=== PATIENT | female | born 1965 | race Caucasian/White ===

== ENCOUNTER → 2016-04-07 | Outpatient (CLI) | payer OTHER ==
--- NOTE | 2016-04-07 11:55 | ECHOS ---
DATE OF SERVICE: 04/07/2016 AGE: 50Y SEX: F HT: 65" WT:190 lbs. Protocol Alex: Others: Stage: Dur. of Exercise: 8 minutes 30 seconds *Heart Rate Blood Pressure *Rest: 78 Rest: 100/64 * *Max. Achieved: 151 Maximum BP: 164/99 85% PMHR:143 100% PMHR: 168 *METS: 10.1 INDICATIONS: Chest pain. MEDICATIONS: See list. Patient was exercised for a total period of 8 minutes and 30 seconds. Peak heart rate of 151 was achieved. Maximum blood pressure of 164/99 millimeters of mercury was noted. Resting EKG shows normal sinus rhythm with normal DC interval and QRS duration and normal ST-T waves. No ST segment depression suggestive of ischemia is noted. The baseline echocardiographic images reveals normal left ventricular chamber size with normal left ventricular systolic function. In the immediate postexercise period, normal increase in the wall thickness and contractility is noted. FINAL IMPRESSION: This stress echocardiographic study is negative for stress-induced ischemia. EKG portion of the stress test is not suggestive of ischemia. Patient's exercise tolerance is normal.
== END | disposition home or self-care (01) ==
LOC: RADNMMAIN 09:38
PROVIDERS: ATTEND Internal Medicine
DX: R07.89 Other chest pain (principal)
CPT/HCPCS: 93017; 93350

== ENCOUNTER → 2016-04-10 | Outpatient (CLI) | payer OTHER ==
--- NOTE | 2016-04-10 11:16 | BD ---
EXAMINATION TYPE: MG DEXA axial skeleton. DATE OF EXAM: 04/10/2016 7:27 AM COMPARISON: 2011 CLINICAL HISTORY: osteoporosis Height: 5'5 Weight: 194 FRAX RISK QUESTIONS: Alcohol (3 or more units per day): no Family History (Parent hip fracture): no Glucocorticoids (More than 3mos): no (Ex: prednisone, prednisolone, methylprednisolone, dexamethasone, and hydrocortisone). History of Fracture in Adulthood: no Secondary Osteoporosis: 1. Type 1 Diabetes: no 2. Hyperthyroidism: no 3. Menopause before 45: yes 4. Malnutrition: no 5. Chronic liver disease: no Rheumatoid Arthritis: no Current Tobacco Use: no RISK FACTORS HISTORY OF: History of Wrist Fracture: rt When: child Family History of Osteoporosis: Active: Postmenopausal woman: MEDICATIONS: Additional Medications: ritalin, vitamin D , Miralax Additional History: osteoporosis EXAM MEASUREMENTS: Bone mineral densitometry was performed using the [employer] System. Bone mineral density as measured about the Lumbar spine is: ----- L1-L4(G/cm2): 1.284 T Score Values are as follows: ----- L2: 0.0 ----- L3: 1.4 ----- L4: 1.2 ----- L1-L4: 0.9 Bone mineral density has: Decreased -2.6% since study of: 06/16/2011 Bone mineral density about the R hip (g/cm2): 1.171 Bone mineral density about the L hip (g/cm2): 1.072 T Score values are as follows: -----R Neck: 1.0 -----L Neck: 0.2 -----R Intertrochanter: 1.0 -----L Intertrochanter: 1.6 Bone mineral density has: Increased 1.8% since study of:06/16/2011 IMPRESSION: Normal (Values between +1 and -1 indicate normal bone mass) NOTE: T-SCORE=SD OF THE YOUNG ADULT MEAN.
--- NOTE | 2016-04-11 09:07 | MM ---
Reason for exam: screening (asymptomatic). Last mammogram was performed 1 year and 1 month ago. History: Patient is postmenopausal. Family history of breast cancer in mother at age 71. Took hormonal contraceptives for 1 year beginning at age 13. Took estrogen for 1 year 2 months beginning at age 41. Physical Findings: A clinical breast exam by your physician is recommended on an annual basis and results should be correlated with mammographic findings. MG Screening Mammo w CAD Bilateral CC and MLO view(s) were taken. Prior study comparison: March 08, 2015, bilateral MG 3d diag mammo w/cad [facility]. May 13, 2013, bilateral digital screening mammo w/CAD. There are scattered fibroglandular densities. There is no discrete abnormality. No significant changes when compared with prior studies. ASSESSMENT: Negative, BI-RAD 1 RECOMMENDATION: Routine screening mammogram of both breasts in 1 year.
== END | disposition home or self-care (01) ==
LOC: RADMAMWWP 06:55
PROVIDERS: ATTEND Obstetrics & Gynecology
DX: Z12.31 Encounter for screening mammogram for malignant neoplasm of breast (principal); Z78.0 Asymptomatic menopausal state
CPT/HCPCS: 77080; G0202

== ENCOUNTER → 2016-08-27 | Outpatient (CLI) | payer OTHER ==
[2016-08-27 09:48] LABS: ALT 45 U/L (9-52); AST 30 U/L (14-36); Alkaline Phosphatase 67 U/L (38-126); Anion Gap 10 mmol/L; Blood Urea Nitrogen 14 mg/dL (7-17); Calcium 9.8 mg/dL (8.4-10.2); Carbon Dioxide 29 mmol/L (22-30); Chloride 104 mmol/L (98-107); Cholesterol 264 mg/dL (<200); Glucose 92 mg/dL (74-99); HDL Cholesterol 55 mg/dL (40-60); Non-African American GFR(MDRD) >60 (>60 ml/min/1.73 sqM); Potassium 4.1 mmol/L (3.5-5.1); Sodium 143 mmol/L (137-145); Total Bilirubin 0.6 mg/dL (0.2-1.3); Total Protein 7.6 g/dL (6.3-8.2); Triglycerides 143 mg/dL (<150)
== END | disposition home or self-care (01) ==
LOC: LABWHC1 09:02
PROVIDERS: ATTEND Internal Medicine
DX: E78.5 Hyperlipidemia, unspecified (principal)
CPT/HCPCS: 36415; 80053; 80061

== ENCOUNTER → 2016-11-21 | Outpatient (CLI) | payer OTHER ==
--- NOTE | 2016-11-21 15:04 | USB ---
Reason for exam: clinical finding. History: Patient is postmenopausal. Family history of breast cancer in mother at age 71. Took hormonal contraceptives for 1 year beginning at age 13. Took estrogen for 1 year 2 months beginning at age 41. Physical Findings: Nurse Summary: Patient complains of pulling/sharp/shooting pains in the left breast x 6 weeks (nurse avila) US Breast LT Technologist: Catherine Mcclain Left breast ultrasound includes all four quadrants, the retroareolar region and axilla. Finding demonstrates no cystic or solid lesion seen. No sonographic abnormality. No cystic or solid masses. These results were verbally communicated with the patient and result sheet given to the patient on 11/21/16. ASSESSMENT: Negative, BI-RAD 1 RECOMMENDATION: Return to routine screening mammogram schedule for both breasts. Back on schedule for April 2017. Manage patient on a clinical basis.
== END | disposition home or self-care (01) ==
LOC: RADUSWWP 13:32
PROVIDERS: ATTEND Obstetrics & Gynecology
DX: N64.4 Mastodynia (principal)

== ENCOUNTER → 2017-01-07 | Outpatient (CLI) | payer OTHER ==
--- NOTE | 2017-01-08 01:01 | US ---
EXAMINATION TYPE: US carotid duplex BILAT DATE OF EXAM: 01/07/2017 COMPARISON: NONE CLINICAL HISTORY: 51-year-old female G45.3 AMAUROSIS FUGAX. TECHNIQUE: Carotid duplex ultrasound examination. Indirect Doppler criteria was utilized. FINDINGS: Garber scale images show minimal atherosclerotic irregularity at the bifurcations. EXAM MEASUREMENTS: RIGHT: Peak Systolic Velocity (PSV) cm/sec ----- Right CCA: 109.5 ----- Right ICA: 79.8 ----- Right ECA: 99.1 ICA/CCA ratio: 0.7 RIGHT: End Diastole cm/sec ----- Right CCA: 33.6 ----- Right ICA: 20.4 ----- Right ECA: 21.5 LEFT: Peak Systolic Velocity (PSV) cm/sec ----- Left CCA: 91.9 ----- Left ICA: 111.7 ----- Left ECA: 71.2 ICA/CCA ratio: 1.2 LEFT: End Diastole cm/sec ----- Left CCA: 29.2 ----- Left ICA: 25.9 ----- Left ECA: 11.0 VERTEBRALS (direction of flow): Right Vertebral: Antegrade Left Vertebral: Antegrade Rhythm: Normal No significant stenosis seen, no elevated velocities. IMPRESSION: No hemodynamically significant stenosis appreciated in either internal carotid artery. Criteria for Assigning % of Stenosis / Diameter reduction (Estimation based on the indirect measurements of the internal carotid artery velocities (ICA PSV). 1. Normal (no stenosis)=ICA PSV < 125 cm/s: ratio < 2.0: ICA EDV<40 cm/s. 2. Less than 50% stenosis=ICA PSV < 125 cm/s: ratio < 2.0: ICA EDV<40 cm/s. 3. 50 to 69% stenosis=ICA PSV of 125 to 230 cm/s: ration 2.0 ? 4.0: ICA EDV 40-100 cm/s. 4. Greater than 70% stenosis to near occlusion= ICA PSV > 230 cm/s: ratio > 4.0: ICA EDV > 100 cm/s. 5. Near occlusion= ICA PSV velocities may be low or undetectable: variable ratio and ICA EDV. 6. Total occlusion=unable to detect flow.
== END | disposition home or self-care (01) ==
LOC: RADUSWWP 16:08
PROVIDERS: ATTEND Internal Medicine
DX: G45.3 Amaurosis fugax (principal)
CPT/HCPCS: 93880

== ENCOUNTER → 2017-07-29 | Outpatient (CLI) | payer BC ==
[2017-07-29 13:51] LABS: ALT 39 U/L (9-52); AST 30 U/L (14-36); Cholesterol 244 mg/dL (<200); HDL Cholesterol 65 mg/dL (40-60); LDL Cholesterol,Calculated 138 mg/dL (0-99); Triglycerides 207 mg/dL (<150)
--- NOTE | 2017-07-30 14:05 | MM ---
Reason for exam: screening (asymptomatic). Last mammogram was performed 1 year and 4 months ago. History: Patient is postmenopausal. Family history of breast cancer in mother at age 71. Took hormonal contraceptives for 1 year beginning at age 13. Took estrogen for 1 year 2 months beginning at age 41. Physical Findings: A clinical breast exam by your physician is recommended on an annual basis and results should be correlated with mammographic findings. MG Screening Mammo w CAD Bilateral CC and MLO view(s) were taken. Prior study comparison: April 10, 2016, bilateral MG screening mammo w CAD. March 08, 2015, bilateral MG 3d diag mammo w/cad [facility]. No significant changes when compared with prior studies. ASSESSMENT: Benign, BI-RAD 2 RECOMMENDATION: Routine screening mammogram of both breasts in 1 year.
== END | disposition home or self-care (01) ==
LOC: RADMAMWWP 12:52
PROVIDERS: ATTEND Obstetrics & Gynecology
DX: Z12.31 Encounter for screening mammogram for malignant neoplasm of breast (principal); E78.5 Hyperlipidemia, unspecified
CPT/HCPCS: 77067; 80061; 84450; 84460

== ENCOUNTER → 2017-12-25 | Outpatient (CLI) | payer BC ==
--- NOTE | 2017-12-25 08:46 | US ---
EXAMINATION TYPE: US pelvic complete DATE OF EXAM: 12/25/2017 COMPARISON: CT abdomen and pelvis November 05, 2012 CLINICAL HISTORY: R14.0 Abdominal Bloating. Right flank pain, bloating, complete hysterectomy 10+ yea rs ago TECHNIQUE: Transabdominal (TA). Date of LMP: unknown EXAM MEASUREMENTS: Uterus: Surgically absent Endometrial Stripe: Surgically absent Right Ovary: Surgically absent Left Ovary: Surgically absent 1. Uterus: Surgically absent, vaginal cuff = 0.6cm 2. Endometrium: Surgically absent 3. Right Ovary: Surgically absent 4. Left Ovary: Surgically absent 5. Bilateral Adnexa: wnl IMPRESSION: No pelvic ascites. Post hysterectomy changes without suspicious residual mass.
--- NOTE | 2017-12-25 08:48 | US ---
EXAMINATION TYPE: US abdomen complete DATE OF EXAM: 12/25/2017 COMPARISON: CT abdomen pelvis November 05, 2012 CLINICAL HISTORY: R14.0 Abdominal Bloating. Right fl ank pain, bloating, cholecystectomy EXAM MEASUREMENTS: Liver Length: 20.2 cm Gallbladder Wall: Surgically absent CBD: 0.5 cm Spleen: 9.1 cm Right Kidney: 12.9 x 4.1 x 4.1 cm Left Kidney: 13.1 x 5.1 x 4.4 cm Pancreas: Tail obscured by overlying bowel gas Liver: Cystic areas noted, largest = 1.9 x 1.3 x 1.7cm Gallbladder: Surgically absent Evidence for sonographic Aguero's sign: no CBD: wnl Spleen: wnl Right Kidney: no evidence of hydronephrosis Left Kidney: cystic area lower pole = 1.7 x 1.3 x 1.7cm Upper IVC: wnl Abd Aorta: wnl The visualized liver is heterogeneously hyperechoic. No intrahepatic ductal dilatation is seen. Evalu ation for focal masses is suboptimal due to the heterogeneity. Technologist champion a 1.7 cm thin-denisse d cyst correlates with CT axial image 13. The intrahepatic portion of the IVC and visualized abdomina l aorta are within normal limits. Gallbladder noted surgically absent. Common bile duct is unremarka ble. The visualized portions of the pancreas are homogenous. The spleen is unremarkable. Kidneys a re symmetric and free of hydronephrosis. Technologist identifies new 1.7 cm simple appearing cyst low er pole level left kidney. IMPRESSION: No significant new finding seen to account for patient's symptoms.
== END | disposition home or self-care (01) ==
LOC: RADUSWWP 06:51
PROVIDERS: ATTEND Internal Medicine Gastroenterology
DX: R14.0 Abdominal distension (gaseous) (principal); Z90.710 Acquired absence of both cervix and uterus
CPT/HCPCS: 76700; 76856

== ENCOUNTER 2018-01-06 09:44 | Day surgery (SDC) | payer BC ==
[2018-01-04 15:34] VITALS: BMI 31.4
[~2018-01-06 09:44] MED LIST: LACTATED RINGERS 1,000 ML IV SCH
[2018-01-06 10:06] VITALS: RESP 16; TEMP 98
[2018-01-06] MEDS ORDERED: LIDOCAINE 1% 20 ML VIAL (10MG/ML) FOR IV START INTRADERMA ONE (10:13)
[2018-01-06] MEDS ORDERED: PROPOFOL 10 MG/ML 20 ML VIAL IV ONE (10:43)
[2018-01-06] MEDS ORDERED: LIDOCAINE 1% INJ 10MG/ML (20 ML MDV) ONE (10:43)
--- NOTE | 2018-01-06 11:03 | P.PCN ---
Date of Procedure: 01/06/18 Procedure(s) Performed: Brief history: Patient is a pleasant 52-year-old white female, scheduled for an elective upper endoscopy as well as colonoscopy as a part of evaluation of admitted quadrant abdominal pain for the last 1 month duration. She tried Prilosec 20 mg daily for several weeks with no help.. Abdominal pain is worse with eating associated with abdominal bloating. No history of peptic ulcer disease or recent NSAID use. She is also scheduled for a screening colonoscopy today. Procedure performed: Esophagogastroduodenoscopy with biopsy Colonoscopy Preoperative diagnosis: White upper quadrant abdominal pain Screening for colon cancer Anesthesia: MAC Procedure: After informed consent was obtained from the patient was brought into the endoscopy unit and IV sedation was administered by anesthesia under continuous monitoring. Initially upper endoscopy was done. The Olympus GF 160 video endoscope was inserted inserted into the mouth and esophagus intubated without any difficulty and was gradually advanced into the stomach and duodenum and carefully examined. The bulb and second part of the duodenum appeared normal. Biopsies were done from the duodenum to rule out celiac disease. The scope was then withdrawn into the stomach adequately insufflated with air and upon careful examination the antrum had mild gastritis and biopsies were done from this area. The body, cardia and fundus appeared normal. The scope was then withdrawn into the esophagus. The GE junction was located at 40 cm to the incisors. It appeared regular with no erythema erosions or ulcerations. There was a 3-4 mm polyp noted in the mid esophagus at 29 cm from the incisors which was biopsied. Rest of the esophagus appeared normal. Patient tolerated the procedure well. At this time the patient continued to remain sedation. Initial digital rectal examination was normal. Olympus CF 160 video colonoscope was then inserted into the rectum and gradually advanced to the cecum without any difficulty. Careful examination was performed as the scope was gradually being withdrawn. The prep was excellent. The cecum, ascending colon, transverse colon, descending colon, sigmoid colon and rectum appeared normal. Retroflexion was performed in the rectum and no lesions were noted. Patient tolerated the procedure well. Impression: 1. Upper endoscopy revealed 3 mm mid esophageal polyp and mild antral gastritis 2. Colonoscopy was essentially within normal limits with no evidence of colitis or colorectal neoplasia Recommendations: Findings of this examination were discussed with the patient as well as her family. She was advised to follow with the biopsy results. She'll be seen in office in 2 weeks. He can have a repeat screening colonoscopy in 10 years
[2018-01-06 11:34] VITALS: BP 147/73; PULSE 64
== END 2018-01-06 11:49 | disposition home or self-care (01) ==
LOC: ORWHC2ENDO 09:44
PROVIDERS: ATTEND Internal Medicine Gastroenterology
DX: Z12.11 Encounter for screening for malignant neoplasm of colon (principal); K29.80 Duodenitis without bleeding; K31.9 Disease of stomach and duodenum, unspecified; K29.70 Gastritis, unspecified, without bleeding; K21.0 Gastro-esophageal reflux disease with esophagitis; D13.0 Benign neoplasm of esophagus; E78.5 Hyperlipidemia, unspecified; K21.9 Gastro-esophageal reflux disease without esophagitis; K58.9 Irritable bowel syndrome, unspecified; Z88.3 Allergy status to other anti-infective agents; Z79.899 Other long term (current) drug therapy; Z88.5 Allergy status to narcotic agent
CPT/HCPCS: 88305; 43239; J2001; J2704; G0121; 45378

== ENCOUNTER → 2018-02-23 | Outpatient (CLI) | payer BC ==
[2018-02-23 14:38] LABS: Basophils % (A) 0 %; Eosinophils # (A) 0.1 k/uL (0-0.7); Eosinophils % (A) 1 %; HCT 40.6 % (34.0-46.0); Lymphocytes # (A) 2.1 k/uL (1.0-4.8); Lymphocytes % (A) 25 %; MCHC 34.5 g/dL (31.0-37.0); MCV 84.2 fL (80.0-100.0); Mean Platelet Volume 7.2; Monocytes # (A) 0.3 k/uL (0-1.0); Monocytes % (A) 4 %; Neutrophils # (A) 5.7 k/uL (1.3-7.7); Neutrophils % (A) 68 %; Platelet Count 262 k/uL (150-450); RBC 4.82 m/uL (3.80-5.40); RDW 12.8 % (11.5-15.5); WBC 8.4 k/uL (3.8-10.6)
[2018-02-23 15:20] LABS: ALT 41 U/L (9-52); AST 36 U/L (14-36); Alkaline Phosphatase 66 U/L (38-126); Anion Gap 13 mmol/L; Blood Urea Nitrogen 19 mg/dL (7-17); Calcium 10.2 mg/dL (8.4-10.2); Carbon Dioxide 25 mmol/L (22-30); Chloride 105 mmol/L (98-107); Cholesterol 281 mg/dL (<200); Glucose 86 mg/dL (74-99); HDL Cholesterol 62 mg/dL (40-60); LDL Cholesterol,Calculated 185 mg/dL (0-99); Potassium 3.9 mmol/L (3.5-5.1); Sodium 143 mmol/L (137-145); Total Bilirubin 0.8 mg/dL (0.2-1.3); Triglycerides 172 mg/dL (<150)
--- NOTE | 2018-02-23 15:23 | US ---
EXAMINATION TYPE: US thyroid st tissue head/neck DATE OF EXAM: 02/23/2018 COMPARISON: US 08/17/2014 CLINICAL HISTORY: M54.2 CERVICALGIA. GLAND SIZE: Right Lobe: 4.1 X 1.3 X 1.3 cm Overall Parenchyma: heterogenous Left Lobe: 4.2 x 0.9 x 1.4 cm Overall Parenchyma: heterogeneous Isthmus Thickness: 0.2 cm NODULES RIGHT: # of nodules measured on right: 0 LEFT: # of nodules measured on left: 0 ISTHMUS: # of nodules measured in the isthmus: 0 Bilateral neck scanned, no evidence of lymphadenopathy. There is heterogeneous slightly small size thyroid without discrete nodule on images saved. IMPRESSION: As above, no suspicious nodules or adenopathy.
--- NOTE | 2018-02-26 15:12 | MM ---
Reason for exam: clinical finding. Last mammogram was performed 7 months ago. History: Patient is postmenopausal. Family history of breast cancer in mother at age 71. Took hormonal contraceptives for 1 year beginning at age 13. Took estrogen for 1 year 2 months beginning at age 41. Indicated problem(s): pain in the right breast. Physical Findings: Nurse did not find any significant physical abnormalities on exam. MG Diagnostic Mammo RT w CAD CC and MLO view(s) were taken of the right breast. Prior study comparison: July 29, 2017, bilateral MG screening mammo w CAD. April 10, 2016, bilateral MG screening mammo w CAD. There are scattered fibroglandular densities. No discrete abnormality. These results were verbally communicated with the patient and result sheet given to the patient on 02/23/18. ASSESSMENT: Negative, BI-RAD 1 RECOMMENDATION: Return to routine screening mammogram schedule for both breasts.
--- NOTE | 2018-02-26 15:15 | USB ---
History: Patient is postmenopausal. Family history of breast cancer in mother at age 71. Took hormonal contraceptives for 1 year beginning at age 13. Took estrogen for 1 year 2 months beginning at age 41. US Breast RT Right complete breast ultrasound includes all four quadrants, the retroareolar region and axilla. Finding demonstrates no cystic or solid lesion seen. These results were verbally communicated with the patient and result sheet given to the patient on 02/23/18. ASSESSMENT: Negative, BI-RAD 1 RECOMMENDATION: Clinical management of the right breast. Manage the right breast pain on a clinical basis. Routine screening mammogram of both breasts in 6 months.
== END ==
LOC: RADMAMWWP 12:54
PROVIDERS: ATTEND Internal Medicine
DX: M54.2 Cervicalgia (principal); N64.4 Mastodynia; E78.5 Hyperlipidemia, unspecified; E55.9 Vitamin D deficiency, unspecified
CPT/HCPCS: 36415; 76536; 77065; 80053; 80061; 82306; 84443; 85025

== ENCOUNTER → 2019-09-07 | Outpatient (CLI) | payer SELFPAY ==
--- NOTE | 2019-09-07 12:13 | FL ---
EXAMINATION TYPE: FL barium swallow DATE OF EXAM: 09/07/2019 HISTORY: Cervical and substernal dysphasia more with solid foods. History of GERD on antacid medicati on. History of vocal cord polyps. COMPARISON: NONE TECHNIQUE: A double contrast esophagram is performed utilizing air and barium. FINDINGS: The esophagus shows mild dysmotility and normal emptying into the stomach. No evidence of hiatal her andrea or stricture noted. No significant gastroesophageal reflux was seen during real time performance of this study. IMPRESSION: No significant abnormality is seen to account for patient's symptoms.
== END | disposition home or self-care (01) ==
LOC: RADFLMAIN 10:44
PROVIDERS: ATTEND Otolaryngology
DX: R13.10 Dysphagia, unspecified (principal); Z88.5 Allergy status to narcotic agent; Z91.041 Radiographic dye allergy status
CPT/HCPCS: 74220

== ENCOUNTER 2020-05-03 10:01 | Emergency (ER) | payer OTHER ==
[2020-05-03 10:13] VITALS: RESP 18
--- NOTE | 2020-05-03 10:28 | ED ---
Abdominal Pain HPI - General Chief Complaint: Abdominal Pain Stated Complaint: Abd pain Time Seen by Provider: 05/03/20 10:14 Source: patient Mode of arrival: ambulatory Limitations: no limitations - History of Present Illness Initial Comments: 54-year-old female with history of dyslipidemia, GERD, IBS previous cholecystectomy presenting to the emergency department today for chief complaint of epigastric pain and bloating on and off for months to years. Patient states that she has had the sensation of bloating and indigestion for years and has been diagnosed with IBS-she states these symptoms for the past 3-4 months have been worsening. Patient states yesterday she went to get off the toilet and had a ball-like sensation in the epigastric region that seemed to "roll into her chest"--she states that the pain radiated to the back along the side b/l. Patient states that she had indigestion, hiccups and belching since. patient states that the pain is almost gone right now. She denies chest pressure, dyspnea, leg swelling, hemoptysis, hx of PE/DVT or known cancer. Patient states that the abdominal pain did increase at time with maximal inspiration as well as with palpation of the epigastric region. Patient denies jaw pain, arm pain, diap horesis. Patient states that her father did have hx of DE. Remaining ROS (-). Upon arrival patient appears nontoxic in no acute distress. CT and endoscopy scheduled for Thursday of next week. - Related Data Home Medications Medication Instructions Recorded Confirmed Cholecalciferol (Vitamin D3) 2,000 unit PO DAILY 01/04/18 05/03/20 [Vitamin D3] Methylphenidate HCl [Ritalin] 10 mg PO QID 01/04/18 05/03/20 Pantoprazole [Protonix] 40 mg PO DAILY 01/04/18 05/03/20 Allergies Allergy/AdvReac Type Severity Reaction Status Date / Time acetaminophen Allergy Vomiting Verified 05/03/20 11:27 [From Darvocet-N] bacitracin Allergy Swelling,it Verified 05/03/20 11:27 [From Neosporin adela ([id number])] blue dye Allergy sneezing,it Verified 05/03/20 11:27 adela neomycin Allergy Swelling,it Verified 05/03/20 11:27 [From Neosporin adela ([id number])] polymyxin B Allergy Swelling,it Verified 05/03/20 11:27 [From Neosporin adela ([id number])] propoxyphene Allergy Vomiting Verified 05/03/20 11:27 [From Darvocet-N] Review of Systems ROS Statement: Those systems with pertinent positive or pertinent negative responses have been documented in the HPI. ROS Other: All systems not noted in ROS Statement are negative. Past Medical History Past Medical History: Chest Pain / Angina, GERD/Reflux, Hyperlipidemia Additional Past Medical History / Comment(s): hiatal hernia, hx ulcer, IBS, constipation, rt side abdominal pain, abdominal swelling, History of Any Multi-Drug Resistant Organisms: None Reported Past Surgical History: Section, Cholecystectomy, Hysterectomy, Orthopedic Surgery Additional Past Surgical History / Comment(s): rt shoulder rotator cuff, Past Anesthesia/Blood Transfusion Reactions: Motion Sickness Past Psychological History: Anxiety, Depression Smoking Status: Never smoker Past Alcohol Use History: Occasional Past Drug Use History: None Reported - Past Family History Mother Family Medical History: Cancer Brother(s) Family Medical History: Deep Vein Thrombosis (DVT) General Exam - General Exam Comments Initial Comments: General: The patient is awake and alert, in no distress Eye: Pupils are equal, round and reactive to light, extra-ocular movements are intact. No nystagmus. There is normal conjunctiva bilaterally. No signs of icterus. Ears, nose, mouth and throat: There are moist mucous membranes and no oral lesions. Neck: The neck is supple, there is no tenderness or JVD. Cardiovascular: There is a regular rate and rhythm. No murmur, rub or gallop is appreciated. Respiratory: Lungs are clear to auscultation, respirations are non-labored, breath sounds are equal. No wheezes, stridor, rales, or rhonchi. Gastrointestinal: Soft, appears maybe slightly distended, mild tenderness to palpation of the epigastric region, abdomen without masses or organomegaly noted. There is no rebound or guarding present. Musculoskeletal: Normal ROM, no tenderness. Strength 5/5. Sensation intact. Radial pulses equal bilaterally 2+. Neurological: A&O x 3. CN II-XII intact grossly, There are no obvious motor or sensory deficits. Coordination appears grossly intact. Speech is normal. Skin: Skin is warm and dry and no rashes or lesions are noted. Psychiatric: Cooperative, appropriate mood & affect, normal judgment. Limitations: no limitations Course Vital Signs 05/03/20 05/03/20 10:06 13:24 Temperature 98.1 F 97.6 F Pulse Rate 77 68 Respiratory 18 18 Rate Blood Pressure 152/84 152/97 O2 Sat by Pulse 93 L 99 Oximetry Medical Decision Making - Medical Decision Making Ventricular rate 60 bpm, HI interval 136 small seconds, QRS ration any formal seconds, QT/QTC 416/460 ms. This is normal sinus without any ST elevation or depression. EKG within normal limits. Troponin negative. Patient is reproducible epigastric pain the symptoms been ongoing for months if not a year per patient. CT revealed no masses. Patient denies any chest pain. Patient symptoms currently controlled. At this afternoon discussed the case with attending provider including presenting history, EKG, and labs by attending and I are comfortable discharge with outpatient GI follow-up as scheduled and primary care follow up 1 today's return for worsening symptoms. - Lab Data Result diagrams: 05/03/20 10:37 05/03/20 10:37 Lab Results 05/03/20 05/03/20 05/03/20 Range/Units 10:37 10:37 10:37 WBC 7.8 (3.8-10.6) k/uL RBC 4.80 (3.80-5.40) m/uL Hgb 13.4 (11.4-16.0) gm/dL Hct 40.3 (34.0-46.0) % MCV 84.0 (80.0-100.0) fL MCH 28.0 (25.0-35.0) pg MCHC 33.3 (31.0-37.0) g/dL RDW 13.0 (11.5-15.5) % Plt Count 299 (150-450) k/uL MPV 7.0 Neutrophils % 62 % Lymphocytes % 30 % Monocytes % 5 % Eosinophils % 1 % Basophils % 1 % Neutrophils # 4.8 (1.3-7.7) k/uL Lymphocytes # 2.3 (1.0-4.8) k/uL Monocytes # 0.4 (0-1.0) k/uL Eosinophils # 0.1 (0-0.7) k/uL Basophils # 0.0 (0-0.2) k/uL PT 9.6 (9.0-12.0) sec INR 0.9 (<1.2) APTT 24.6 (22.0-30.0) sec Sodium (137-145) mmol/L Potassium (3.5-5.1) mmol/L Chloride (98-107) mmol/L Carbon Dioxide (22-30) mmol/L Anion Gap mmol/L BUN (7-17) mg/dL Creatinine (0.52-1.04) mg/dL Est GFR (CKD-EPI)AfAm (>60 ml/min/1.73 sqM) Est GFR (CKD-EPI)NonAf (>60 ml/min/1.73 sqM) Glucose (74-99) mg/dL Plasma Lactic Acid Vikas (0.7-2.0) mmol/L Calcium (8.4-10.2) mg/dL Total Bilirubin (0.2-1.3) mg/dL AST (14-36) U/L ALT (4-34) U/L Alkaline Phosphatase (38-126) U/L Troponin I (0.000-0.034) ng/mL NT-Pro-B Natriuret Pep pg/mL Total Protein (6.3-8.2) g/dL Albumin (3.5-5.0) g/dL Amylase (30-110) U/L Lipase (23-300) U/L Urine Color Light Yellow Urine Appearance Clear (Clear) Urine pH 5.5 (5.0-8.0) Ur Specific Ledger 1.018 (1.001-1.035) Urine Protein Negative (Negative) Urine Glucose (UA) Negative (Negative) Urine Ketones Negative (Negative) Urine Blood Negative (Negative) Urine Nitrite Negative (Negative) Urine Bilirubin Negative (Negative) Urine Urobilinogen <2.0 (<2.0) mg/dL Ur Leukocyte Esterase Trace H (Negative) Urine WBC 2 (0-5) /hpf Ur Squamous Epith Cells 2 (0-4) /hpf Urine Mucus Rare H (None) /hpf 05/03/20 05/03/20 05/03/20 Range/Units 10:37 10:37 10:37 WBC (3.8-10.6) k/uL RBC (3.80-5.40) m/uL Hgb (11.4-16.0) gm/dL Hct (34.0-46.0) % MCV (80.0-100.0) fL MCH (25.0-35.0) pg MCHC (31.0-37.0) g/dL RDW (11.5-15.5) % Plt Count (150-450) k/uL MPV Neutrophils % % Lymphocytes % % Monocytes % % Eosinophils % % Basophils % % Neutrophils # (1.3-7.7) k/uL Lymphocytes # (1.0-4.8) k/uL Monocytes # (0-1.0) k/uL Eosinophils # (0-0.7) k/uL Basophils # (0-0.2) k/uL PT (9.0-12.0) sec INR (<1.2) APTT (22.0-30.0) sec Sodium 139 (137-145) mmol/L Potassium 4.5 (3.5-5.1) mmol/L Chloride 103 (98-107) mmol/L Carbon Dioxide 22 (22-30) mmol/L Anion Gap 14 mmol/L BUN 18 H (7-17) mg/dL Creatinine 0.64 (0.52-1.04) mg/dL Est GFR (CKD-EPI)AfAm >90 (>60 ml/min/1.73 sqM) Est GFR (CKD-EPI)NonAf >90 (>60 ml/min/1.73 sqM) Glucose 101 H (74-99) mg/dL Plasma Lactic Acid Vikas 1.4 (0.7-2.0) mmol/L Calcium 10.9 H (8.4-10.2) mg/dL Total Bilirubin 0.5 (0.2-1.3) mg/dL AST 38 H (14-36) U/L ALT 41 H (4-34) U/L Alkaline Phosphatase 64 (38-126) U/L Troponin I (0.000-0.034) ng/mL NT-Pro-B Natriuret Pep 15 pg/mL Total Protein 8.3 H (6.3-8.2) g/dL Albumin 5.1 H (3.5-5.0) g/dL Amylase 50 (30-110) U/L Lipase 178 (23-300) U/L Urine Color Urine Appearance (Clear) Urine pH (5.0-8.0) Ur Specific Ledger (1.001-1.035) Urine Protein (Negative) Urine Glucose (UA) (Negative) Urine Ketones (Negative) Urine Blood (Negative) Urine Nitrite (Negative) Urine Bilirubin (Negative) Urine Urobilinogen (<2.0) mg/dL Ur Leukocyte Esterase (Negative) Urine WBC (0-5) /hpf Ur Squamous Epith Cells (0-4) /hpf Urine Mucus (None) /hpf 05/03/20 Range/Units 11:25 WBC (3.8-10.6) k/uL RBC (3.80-5.40) m/uL Hgb (11.4-16.0) gm/dL Hct (34.0-46.0) % MCV (80.0-100.0) fL MCH (25.0-35.0) pg MCHC (31.0-37.0) g/dL RDW (11.5-15.5) % Plt Count (150-450) k/uL MPV Neutrophils % % Lymphocytes % % Monocytes % % Eosinophils % % Basophils % % Neutrophils # (1.3-7.7) k/uL Lymphocytes # (1.0-4.8) k/uL Monocytes # (0-1.0) k/uL Eosinophils # (0-0.7) k/uL Basophils # (0-0.2) k/uL PT (9.0-12.0) sec INR (<1.2) APTT (22.0-30.0) sec Sodium (137-145) mmol/L Potassium (3.5-5.1) mmol/L Chloride (98-107) mmol/L Carbon Dioxide (22-30) mmol/L Anion Gap mmol/L BUN (7-17) mg/dL Creatinine (0.52-1.04) mg/dL Est GFR (CKD-EPI)AfAm (>60 ml/min/1.73 sqM) Est GFR (CKD-EPI)NonAf (>60 ml/min/1.73 sqM) Glucose (74-99) mg/dL Plasma Lactic Acid Vikas (0.7-2.0) mmol/L Calcium (8.4-10.2) mg/dL Total Bilirubin (0.2-1.3) mg/dL AST (14-36) U/L ALT (4-34) U/L Alkaline Phosphatase (38-126) U/L Troponin I <0.012 (0.000-0.034) ng/mL NT-Pro-B Natriuret Pep pg/mL Total Protein (6.3-8.2) g/dL Albumin (3.5-5.0) g/dL Amylase (30-110) U/L Lipase (23-300) U/L Urine Color Urine Appearance (Clear) Urine pH (5.0-8.0) Ur Specific Ledger (1.001-1.035) Urine Protein (Negative) Urine Glucose (UA) (Negative) Urine Ketones (Negative) Urine Blood (Negative) Urine Nitrite (Negative) Urine Bilirubin (Negative) Urine Urobilinogen (<2.0) mg/dL Ur Leukocyte Esterase (Negative) Urine WBC (0-5) /hpf Ur Squamous Epith Cells (0-4) /hpf Urine Mucus (None) /hpf Disposition Clinical Impression: Abdominal pain, Bloating Disposition: HOME SELF-CARE Condition: Good Instructions (If sedation given, give patient instructions): Acute Abdominal Pain (ED) Additional Instructions: Please use medication as discussed. Please follow-up with family doctor in the next 2 days. Please return to emergency room if the symptoms increase or worsen or for any other concerns. Is patient prescribed a controlled substance at d/c from ED?: No Referrals: Jeancarlos Guevara MD [Primary Care Provider] - 1-2 days Time of Disposition: 12:45
--- NOTE | 2020-05-03 10:52 | XR ---
EXAMINATION TYPE: XR chest 2V DATE OF EXAM: 05/03/2020 COMPARISON: None INDICATION: Upper gastric pain TECHNIQUE: Frontal and lateral views of the chest are obtained. FINDINGS: The heart size is normal. The pulmonary vasculature is normal. The lungs are clear. IMPRESSION: 1. No acute pulmonary process.
[2020-05-03 11:10] LABS: Appearance,Urine Clear (Clear); Bilirubin,Urine Negative (Negative); Blood,Urine Negative (Negative); Color,Urine Light Yellow; Glucose,Urine (UA) Negative (Negative); Ketones,Urine Negative (Negative); Leukocyte Esterase,Urine Trace (Negative); Mucus,Urine Rare /hpf; Nitrite,Urine Negative (Negative); PH, Urine 5.5 (5.0-8.0); Protein,Urine Negative (Negative); Specific Gravity,Urine 1.018 (1.001-1.035); Squamous Epithelial Cell,Urine 2 /hpf (0-4); Urobilinogen,Urine <2.0 mg/dL (<2.0); WBC,Urine 2 /hpf (0-5)
[2020-05-03 11:11] LABS: Basophils % (A) 1 %; Eosinophils # (A) 0.1 k/uL (0-0.7); Eosinophils % (A) 1 %; HCT 40.3 % (34.0-46.0); HGB 13.4 gm/dL (11.4-16.0); Lymphocytes # (A) 2.3 k/uL (1.0-4.8); Lymphocytes % (A) 30 %; MCHC 33.3 g/dL (31.0-37.0); Monocytes # (A) 0.4 k/uL (0-1.0); Monocytes % (A) 5 %; Neutrophils # (A) 4.8 k/uL (1.3-7.7); Neutrophils % (A) 62 %; Platelet Count 299 k/uL (150-450); WBC 7.8 k/uL (3.8-10.6)
[2020-05-03 11:20] LABS: INR 0.9 (<1.2); Partial Thromboplastin Time 24.6 sec (22.0-30.0); Prothrombin Time 9.6 sec (9.0-12.0)
[2020-05-03 11:24] LABS: ALT 41 U/L (4-34); AST 38 U/L (14-36); African American GFR (CKD) >90 (>60 ml/min/1.73 sqM); Albumin 5.1 g/dL (3.5-5.0); Alkaline Phosphatase 64 U/L (38-126); Amylase 50 U/L (30-110); Anion Gap 14 mmol/L; Blood Urea Nitrogen 18 mg/dL (7-17); Calcium 10.9 mg/dL (8.4-10.2); Carbon Dioxide 22 mmol/L (22-30); Chloride 103 mmol/L (98-107); Glucose 101 mg/dL (74-99); Lipase 178 U/L (23-300); Non-African American GFR(CKD) >90 (>60 ml/min/1.73 sqM); Potassium 4.5 mmol/L (3.5-5.1); Sodium 139 mmol/L (137-145); Total Bilirubin 0.5 mg/dL (0.2-1.3); Total Protein 8.3 g/dL (6.3-8.2)
--- NOTE | 2020-05-03 12:37 | CT ---
EXAMINATION TYPE: CT abdomen pelvis w con DATE OF EXAM: 05/03/2020 COMPARISON: 11/05/2012 INDICATION: epigastric pain DLP: 1085.4 mGycm, Automated exposure control for dose reduction was used. CONTRAST: 100 mL of Isovue 300. Study performed without Oral Contrast TECHNIQUE: Axial images were obtained from above the diaphragm to the pubic rami in the axial plane a t 5 mm thick sections. Reconstructed images are reviewed on the computer in the coronal plane. FINDINGS: Limited CT sections are obtained the lung bases. The lung bases are clear. CT ABDOMEN: Liver: There is mild fatty truncation of the liver. Hepatic cysts measuring 1.5 cm and 10 Hounsfield units is present Spleen: Normal Pancreas: Normal Adrenal glands: The adrenal glands are normal. Gallbladder: Surgically absent Kidneys: No masses are evident. No hydronephrosis is present. There is a 1.6 cm cyst measuring 18 H ounsfield units at the inferior pole left kidney. This is enlarged over the interval. Monitoring with ultrasound can be performed Delayed images were obtained through the kidneys, which remain unremark able. Aorta: Normal Inferior vena cava: Normal. CT PELVIS: Loops of bowel within the abdomen and pelvis are normal. This study is without oral contrast limi ting bowel evaluation Appendix: Normal as visualized. Urinary bladder: Normal. Genitourinary structures: Uterus and ovaries not identified. Osseous structures: No suspicious lytic or sclerotic lesions. Small bone islands within the lateral l eft sacral alar IMPRESSIONS: 1. Enlarging inferior pole left renal cyst. Monitoring with ultrasound is recommended. 2. Stable hepatic cysts with mild fatty infiltration of the liver
[2020-05-03 13:25] VITALS: BP 152/97; PULSE 68; TEMP 97.6
== END 2020-05-03 13:25 | disposition home or self-care (01) ==
LOC: EC 10:01
DX: R14.0 Abdominal distension (gaseous) (principal); R10.13 Epigastric pain; E78.5 Hyperlipidemia, unspecified; K21.9 Gastro-esophageal reflux disease without esophagitis; K58.9 Irritable bowel syndrome, unspecified
CPT/HCPCS: 36415; 93005; 83880; 80053; 82150; 83605; 83690; 84484; 85025; 85610; 85730; 81001; 71046; 74177; 99284; Q9967

== ENCOUNTER → 2020-06-13 | Outpatient (CLI) | payer SELFPAY ==
--- NOTE | 2020-06-14 06:39 | US ---
EXAMINATION TYPE: US kidneys/renal and bladder DATE OF EXAM: 06/13/2020 COMPARISON: CT May 03, 2020 CLINICAL HISTORY: N28.1 cyst of kidney. Left kidney cyst seen on recent CT EXAM MEASUREMENTS: Right Kidney: 12.9 x 4.9 x 5.0 cm Left Kidney: 12.2 x 5.3 x 4.8 cm Right Kidney: No hydronephrosis or masses seen Left Kidney: 1.8 x 1.5 x 1.6cm cyst mid pole Bladder: wnl Bilateral Jets seen: yes Visualized liver is heterogeneously hyperechoic. There is 1.6 cm thin-walled cyst left kidney lower p ole level redemonstrated. IMPRESSION: No hydronephrosis seen bilaterally.
== END | disposition home or self-care (01) ==
LOC: RADUSWWP 14:48
PROVIDERS: ATTEND Family Medicine
DX: N28.1 Cyst of kidney, acquired (principal)
CPT/HCPCS: 76770

== ENCOUNTER → 2021-03-11 | Outpatient (CLI) | payer BC ==
[2021-03-11 14:45] LABS: HCT 41.4 % (37.2-46.3); HGB 13.1 g/dL (12.0-15.0); MCH 27.8 pg (27.0-32.0); MCHC 31.6 g/dL (32.0-37.0); MCV 87.7 fL (80.0-97.0); Mean Platelet Volume 10.2 fL (9.5-12.2); Platelet Count 280 X 10*3/uL (140-440); RBC 4.72 X 10*6/uL (4.10-5.20); RDW 12.6 % (11.5-14.5); WBC 6.15 X 10*3/uL (4.50-10.00)
[2021-03-11 15:14] LABS: ALT 52 U/L (8-44); AST 49 U/L (13-35); African American GFR (CKD) 111.5 (60.0-200.0); Albumin 4.9 g/dL (3.8-4.9); Albumin/Globulin Ratio 1.88 (1.60-3.17); Alkaline Phosphatase 66 U/L (41-126); BUN/Creat Ratio 19.14 Ratio (12.00-20.00); Blood Urea Nitrogen 13.4 mg/dL (9.0-27.0); Calcium 9.8 mg/dL (8.7-10.3); Carbon Dioxide 23.9 mmol/L (20.0-27.5); Chloride 102 mmol/L (96-109); Chol/HDL Ratio 5.32 Ratio; Globulin 2.6 g/dL (1.6-3.3); Glucose 94 mg/dL (70-110); LDL Cholesterol,Calculated 163.8 mg/dL (0.0-131.0); Non-African American GFR(CKD) 96.2 (60.0-200.0); Sodium 140 mmol/L (135-145); Total Protein 7.5 g/dL (6.2-8.2)
== END | disposition home or self-care (01) ==
LOC: LABWHC1 10:20
PROVIDERS: ATTEND Family Medicine
DX: Z00.01 Encounter for general adult medical examination with abnormal findings (principal); R60.9 Edema, unspecified; E55.9 Vitamin D deficiency, unspecified; R82.90 Unspecified abnormal findings in urine
CPT/HCPCS: 36415; 80053; 80061; 82306; 83880; 85027; 87086

== ENCOUNTER → 2021-03-28 | Outpatient (CLI) | payer BC ==
--- NOTE | 2021-03-28 09:15 | US ---
EXAMINATION TYPE: US kidneys/renal and bladder DATE OF EXAM: 03/28/2021 COMPARISON: NONE CLINICAL HISTORY: 55-year-old female R82.90 ABN FINDINGS IN URINE. Urine odor, pain, hx of left cyst TECHNIQUE: Multiple sonographic images of the kidneys and bladder are obtained. FINDINGS: EXAM MEASUREMENTS: Right Kidney: 12.3 x 4.2 x 4.2 cm Left Kidney: 11.7 x 5.5 x 4.7 cm Right Kidney: wnl Left Kidney: 1.9 x 1.4 x 1.7 cystic area lower pole Bladder: wnl Bilateral Jets seen: yrs Incidental echogenic appearance of the liver compatible with hepatic steatosis. IMPRESSION: 1. No hydronephrosis. 2. An incidental 1.9 cm benign cyst lower pole left kidney. 3. Echogenic appearance to the liver suggesting fatty infiltration.
== END | disposition home or self-care (01) ==
LOC: RADUSWWP 08:11
PROVIDERS: ATTEND Family Medicine
DX: N28.1 Cyst of kidney, acquired (principal)
CPT/HCPCS: 76770

== ENCOUNTER → 2021-04-26 | Outpatient (CLI) | payer BC ==
--- NOTE | 2021-04-26 13:02 | US ---
EXAMINATION TYPE: US carotid duplex BILAT DATE OF EXAM: 04/26/2021 COMPARISON: Carotid ultrasound January 07, 2017 CLINICAL HISTORY: H53.10 VISUAL DISTURBANCE, H53.121 VISION LOSS. Right neck pain with right eye visu al disturbance. EXAM MEASUREMENTS: RIGHT: Peak Systolic Velocity (PSV) cm/sec ----- Right CCA: 104.0 ----- Right ICA: 80.8 ----- Right ECA: 117.1 ICA/CCA ratio: 0.8 RIGHT: End Diastole cm/sec ----- Right CCA: 27.0 ----- Right ICA: 15.4 ----- Right ECA: 12.5 LEFT: Peak Systolic Velocity (PSV) cm/sec ----- Left CCA: 89.5 ----- Left ICA: 61.9 ----- Left ECA: 104.0 ICA/CCA ratio: 0.7 LEFT: End Diastole cm/sec ----- Left CCA: 31.4 ----- Left ICA: 24.1 ----- Left ECA: 15.4 VERTEBRALS (direction of flow): Right Vertebral: Antegrade Left Vertebral: Antegrade Rhythm: Normal No elevated velocities IMPRESSION: No hemodynamically significant stenosis in either internal carotid artery. No significan t change from prior. Criteria for Assigning % of Stenosis / Diameter reduction (Estimation based on the indirect measurements of the internal carotid artery velocities (ICA PSV). 1. Normal (no stenosis)=ICA PSV < 125 cm/s: ratio < 2.0: ICA EDV<40 cm/s. 2. Less than 50% stenosis=ICA PSV < 125 cm/s: ratio < 2.0: ICA EDV<40 cm/s. 3. 50 to 69% stenosis=ICA PSV of 125 to 230 cm/s: ration 2.0 ? 4.0: ICA EDV 40-100 cm/s. 4. Greater than 70% stenosis to near occlusion= ICA PSV > 230 cm/s: ratio > 4.0: ICA EDV > 100 cm/s. 5. Near occlusion= ICA PSV velocities may be low or undetectable: variable ratio and ICA EDV. 6. Total occlusion=unable to detect flow.
== END | disposition home or self-care (01) ==
LOC: RADUSWWP 12:02
PROVIDERS: ATTEND Family Medicine
DX: H53.10 Unspecified subjective visual disturbances (principal); H53.121 Transient visual loss, right eye
CPT/HCPCS: 93880

== ENCOUNTER → 2021-10-24 | Outpatient (CLI) | payer BC ==
--- NOTE | 2021-10-24 12:04 | US ---
EXAMINATION TYPE: US abdomen comp/pelvis limited DATE OF EXAM: 10/24/2021 COMPARISON: CT abdomen and pelvis May 03, 2020 CLINICAL HISTORY: R14.0 Abdominal distension (gaseous). EXAM MEASUREMENTS: Liver Length: 18.3 cm Gallbladder Wall: Surgically absent CBD: 0.32 cm Spleen: 10.2 cm Right Kidney: 12.4 x 4.3 x 5.1 cm Left Kidney: 11.3 x 5.1 x 4.7 cm Pancreas: Tail obscured by bowel gas Liver: Echogenic. Enlarged. Multiple anechoic masses, largest in the right lobe is 1.3 x 1.4 x 1.6c m. Gallbladder: Surgically absent CBD: wnl Spleen: wnl Right Kidney: wnl Left Kidney: Anechoic mass inferior pole measuring 1.7 x 1.3 x 1.5 cm. Upper IVC: wnl Abd Aorta: wnl Bladder: wnl Bilateral Jets Seen Yes Visualized liver heterogeneously hyperechoic with hepatomegaly and prominent right hepatic lobe redem onstrated. Evaluation for focal masses suboptimal due to the heterogeneity. Technologist champion occasi onal benign thin-walled cyst which correlates with prior CT. Gallbladder noted surgically absent. No biliary dilatation. Incidental 1.7 cm simple thin-walled cyst lower pole left kidney likely correspon ds to lesion axial image 42 on delayed phase images. IMPRESSION: No acute findings are evident. Hepatomegaly and prominent right hepatic lobe with fatty i nfiltrative hepatocellular disease in the liver redemonstrated.
== END | disposition home or self-care (01) ==
LOC: RADUSWWP 10:13
PROVIDERS: ATTEND Family Medicine
DX: R14.0 Abdominal distension (gaseous) (principal)
CPT/HCPCS: 76700; 76857

== ENCOUNTER → 2022-02-07 | Outpatient (CLI) | payer BC ==
--- NOTE | 2022-02-07 10:08 | BD ---
EXAMINATION TYPE: Axial Bone Density DATE OF EXAM: 02/07/2022 COMPARISON: 04/10/2016 CLINICAL HISTORY: 56 years year old Female. ICD-10 CODE: N95.1 menopausal state Height: 64 IN Weight: 184 LBS FRAX RISK QUESTIONS: Secondary Osteoporosis: 3. Menopause before 45: TOTAL HYST AGE 41 RISK FACTORS HISTORY OF: History of Wrist Fracture: RT WRIST When: AGE 8 Family History of Osteoporosis: YES MOTHER Active: YES Diet low in dairy products/other sources of calcium: YES Postmenopausal woman: TOTAL HYST AGE 41 MEDICATIONS: Additional Medications: VIT D, RIDILIN, VIT C, VIT E EXAM MEASUREMENTS: Bone mineral densitometry was performed using the [employer] System. Bone mineral density as measured about the Lumbar spine is: ----- L1-L4(G/cm2): 1.308 T Score Values are as follows: ----- L1: 0.7 ----- L2: 0.5 ----- L3: 1.6 ----- L4: 1.3 ----- L1-L4: 1.1 Bone mineral density has: Increased 2.0% since study of: 04/10/2016 Bone mineral density about the R hip (g/cm2): 1.201 Bone mineral density about the L hip (g/cm2): 1.113 T Score values are as follows: -----R Neck: 1.2 -----L Neck: 0.5 -----R Total: 2.2 -----L Total: 1.7 Bone mineral density has: Increased 2.2% since study of: 04/10/2016 FRAX%s: The graph provided illustrates a 5.2 chance for a major osteoporotic fx and a 0.1 chance for the hips probability for fx in 10 years time. IMPRESSION: Normal (Values between +1 and -1 indicate normal bone mass). Consider repeating this study in 5 year s or sooner if there is some new clinical indication. NOTE: T-SCORE=SD OF THE YOUNG ADULT MEAN.
--- NOTE | 2022-02-10 12:02 | MM ---
Reason for Exam: Screening (asymptomatic). Last mammogram was performed 1 year(s) and 2 month(s) ago. Patient History: Menarche at age 10. First Full-Term at age 15. Left ovary removed at age 32. Right ovary removed at age 32. Hysterectomy at age 32. Postmenopausal. Estrogen, starting at age 41 for 1 year, 2 months. Hormonal Contraceptives, starting at age 13 for 1 year. Mother had breast cancer, age 71. Risk Values: Linda 5 year model risk: 2.5%. NCI Lifetime model risk: 13.8%. Prior Study Comparison: 03/08/2015 Bilateral Diagnostic Mammogram, [facility]. 04/10/2016 Bilateral Screening Mammogram, [facility]. 07/29/2017 Bilateral Screening Mammogram, [facility]. 02/23/2018 Right Diagnostic Mammogram, [facility]. 12/09/2019 Bilateral Screening Mammogram, [facility]. 12/07/2020 Bilateral Screening Mammogram, [facility]. Tissue Density: There are scattered fibroglandular densities. Findings: Analyzed By CAD. There is no suspicious group of microcalcifications or new suspicious mass in either breast. Overall Assessment: Negative, BI-RAD 1 Management: Screening Mammogram of both breasts in 1 year. A clinical breast exam by your physician is recommended on an annual basis and results should be correlated with mammographic findings. Electronically signed and approved by: Juventino Bonilla M.D.
== END | disposition home or self-care (01) ==
LOC: RADMAMWWP 08:48
PROVIDERS: ATTEND Obstetrics & Gynecology
DX: Z12.31 Encounter for screening mammogram for malignant neoplasm of breast (principal); N95.1 Menopausal and female climacteric states; Z80.3 Family history of malignant neoplasm of breast
CPT/HCPCS: 77063; 77067; 77080

== ENCOUNTER → 2022-07-17 | Outpatient (CLI) | payer BC ==
--- NOTE | 2022-07-17 13:28 | CT ---
EXAMINATION TYPE: CT abdomen pelvis w con CT DLP: 1057.3 mGycm, Automated exposure control for dose reduction was used. DATE OF EXAM: 07/17/2022 1:14 PM COMPARISON: CT abdomen pelvis most recent from 05/03/2020 . CLINICAL INDICATION:Female, 56 years old with history of R109 UNSPECIFIED ABDOMINAL PAIN; abd pain TECHNIQUE: Standard CT of the abdomen and pelvis following the administration of 100 cc of Isovue 3 00 IV contrast material and oral contrast. Coronal and sagittal reformats were performed. FINDINGS: LOWER CHEST: Unremarkable ABDOMEN LIVER: Stable hepatic cysts. GALLBLADDER AND BILE DUCTS: The gallbladder is surgically absent. No biliary ductal dilatation. PANCREAS: Unremarkable. SPLEEN: Unremarkable. ADRENAL GLANDS: Unremarkable. KIDNEYS AND URETERS: No evidence of hydronephrosis or renal calculus. The kidneys enhance symmetrical ly. Stable left lower pole cyst measuring up to 1.9 cm. Additional bilateral subcentimeter hypodense foci which are too small character as well as represent cysts. Contrast is demonstrated within both c ollecting systems on the delayed phase. PELVIS BLADDER: Unremarkable REPRODUCTIVE: The uterus is surgically absent. ABDOMEN & PELVIS STOMACH AND BOWEL: Stomach and duodenum are unremarkable. No focal bowel wall thickening or surroundi ng inflammatory changes. The appendix is within normal limits. Enteric contrast reaches the cecum. No evidence of bowel obstruction. PERITONEUM: No evidence of pneumoperitoneum or free fluid. VASCULATURE: No evidence of aortic aneurysm. MUSCULOSKELETAL: No acute osseous abnormalities. Stable small bone marrow within the left hemisacrum. LYMPH NODES: No gross evidence for lymphadenopathy. SOFT TISSUE/ABDOMINAL WALL: Tiny fat filled umbilical hernia. IMPRESSION: 1. No acute abdominal/pelvic process. 2. Stable hepatic and renal cysts.
== END | disposition home or self-care (01) ==
LOC: RADCTMAIN 11:06
PROVIDERS: ATTEND Family Medicine
DX: N28.1 Cyst of kidney, acquired (principal); K76.89 Other specified diseases of liver
CPT/HCPCS: 74177; Q9967

== ENCOUNTER → 2022-12-08 | Outpatient (CLI) | payer BC ==
--- NOTE | 2022-12-08 08:10 | US ---
EXAMINATION TYPE: US thyroid st tissue head/neck DATE OF EXAM: 12/08/2022 COMPARISON: NONE CLINICAL INDICATION: Female, 57 years old with history of R13.10 DYSPHAGIA, UNSPECIFIED; Difficulty s wallowing, palpable under left mandible and swelling on and off bilateral neck TECHNIQUE: Neck soft tissue scan FINDINGS: At area of palpable was superficial lymph node 0.6 x 0.5 x 0.7cm, normal appearing soft ti ssue scan of neck IMPRESSION: Area of palpable abnormality correlates with a nonenlarged lymph node. Consider complete evaluation neck with CT neck with IV contrast as clinically warranted.
== END | disposition home or self-care (01) ==
LOC: RADUSWWP 06:47
PROVIDERS: ATTEND Family Medicine
DX: R13.10 Dysphagia, unspecified (principal); M27.8 Other specified diseases of jaws
CPT/HCPCS: 76536

== ENCOUNTER → 2022-12-11 | Outpatient (CLI) | payer BC ==
--- NOTE | 2022-12-11 17:00 | CT ---
EXAMINATION TYPE: CT soft tissue neck w con DATE OF EXAM: 12/11/2022 COMPARISON: None HISTORY: left sided neck swelling CT DLP: 550 mGycm CONTRAST: Patient injected with 100 mL of Isovue 300. TECHNIQUE: Axial images at 3 mm thick sections. Reconstructed images in the coronal plane and sagitt al plane are reviewed. FINDINGS: Limited CT sections are obtained the lung apices. The lung apices appear clear. CT neck: The torus tubarius and fossa of Rosenmuller are normal. Employee Development Specialist spaces are normal. Para nasal sinuses and mastoid air cells are clear. Parotid glands appear normal and symmetrical. Submandibular glands, are normal. Parapharyngeal spac es are normal. No suspicious adenopathy is evident. The hypopharynx appears within normal limits. Epiglottis appears normal. Prevertebral space is normal . Vocal cord level appear symmetrical. Thyroid as visualized is normal. Osseous structures are normal. IMPRESSION: 1. No suspicious abnormality to account for left neck swelling.
== END | disposition home or self-care (01) ==
LOC: RADCTMAIN 15:49
PROVIDERS: ATTEND Family Medicine
DX: R22.1 Localized swelling, mass and lump, neck (principal)
CPT/HCPCS: 70491; Q9967

== ENCOUNTER 2022-12-30 10:36 | Day surgery (SDC) | payer BC ==
[2022-12-30 12:21] VITALS: TEMP 97.7
[2022-12-30] MEDS ORDERED: LIDOCAINE 1% (10MG/ML) FOR IV START INTRADERMA ONE (12:25)
[2022-12-30] MEDS ORDERED: LIDOCAINE 1% INJ 10MG/ML (20 ML MDV) ONE (13:03)
[2022-12-30] MEDS ORDERED: PROPOFOL 10 MG/ML 20 ML VIAL IV ONE (13:03)
--- NOTE | 2022-12-30 13:15 | P.PCN ---
Date of Procedure: 12/30/22 Procedure(s) Performed: BRIEF HISTORY: Patient is a 57-year-old, pleasant, white female scheduled for an upper endoscopy as a part of evaluation of intermittent dysphagia to solids for the last several months duration. PROCEDURE PERFORMED: Esophagogastroduodenoscopy with biopsy. PREOPERATIVE DIAGNOSIS: Intermittent dysphagia to solids. IV sedation per anesthesia. PROCEDURE: After informed consent was obtained, the patient was brought into the endoscopy unit. IV sedation was administered by Anesthesia under continuous monitoring. Initially the Olympus GIF-140 video endoscope was inserted into the mouth. Esophagus intubated without any difficulty. It was gradually advanced into the stomach and duodenum and carefully examined. The bulb and the second part of the duodenum appeared normal. The scope at this time was withdrawn to the stomach, adequately insufflated with air, and upon careful examination, mucosa of the antrum, had mild antral gastritis and biopsies were done from this area. Mucosa of the body, cardia and the fundus appeared normal. The scope was then withdrawn into the esophagus. The GE junction was located at 39 cm from the incisors. The esophagus appeared normal. There were no erosions or ulcerations seen. No evidence of esophageal stricture. Multiple biopsies were done from the mid and distal esophagus to evaluate for eosinophilic esophagitis and the patient tolerated the procedure well. IMPRESSION: 1. Normal-appearing esophagus with no evidence of esophagitis or esophageal stricture. 2. Mild antral gastritis. RECOMMENDATIONS: The findings of this examination were discussed with the patient as well as a family. She was advised to follow with the biopsy results. Recommend a trial of Prilosec 20 mg daily for 6 weeks. Follow up in office in 2 months.
[2022-12-30 13:47] VITALS: BP 165/85; PULSE 68; RESP 17
== END 2022-12-30 13:56 | disposition home or self-care (01) ==
LOC: ORWHC2ENDO 10:36
PROVIDERS: ATTEND Internal Medicine Gastroenterology
DX: K29.50 Unspecified chronic gastritis without bleeding (principal); K21.00 Gastro-esophageal reflux disease with esophagitis, without bleeding; I25.10 Atherosclerotic heart disease of native coronary artery without angina pectoris; E78.5 Hyperlipidemia, unspecified; F41.9 Anxiety disorder, unspecified; F32.A Depression, unspecified; Z87.891 Personal history of nicotine dependence; Z79.899 Other long term (current) drug therapy; Z88.5 Allergy status to narcotic agent; Z88.8 Allergy status to other drugs, medicaments and biological substances; Z88.1 Allergy status to other antibiotic agents
CPT/HCPCS: 43239; 88305

== ENCOUNTER → 2023-02-13 | Outpatient (CLI) | payer BC ==
--- NOTE | 2023-02-13 14:30 | MM ---
Reason for Exam: Screening (asymptomatic). Last mammogram was performed 1 year(s) and 1 month(s) ago. Patient History: Menarche at age 10. First Full-Term at age 15. Left ovary removed at age 32. Right ovary removed at age 32. Hysterectomy at age 32. Postmenopausal. Estrogen, starting at age 41 for 1 year, 2 months. Hormonal Contraceptives, starting at age 13 for 1 year. Mother had breast cancer, age 71. Risk Values: Linda 5 year model risk: 2.6%. NCI Lifetime model risk: 13.5%. Prior Study Comparison: 04/10/2016 Bilateral Screening Mammogram, [facility]. 07/29/2017 Bilateral Screening Mammogram, [facility]. 02/23/2018 Right Diagnostic Mammogram, [facility]. 12/09/2019 Bilateral Screening Mammogram, [facility]. 12/07/2020 Bilateral Screening Mammogram, [facility]. 02/07/2022 Bilateral MG 3D screening mammo w/cad, [facility]. Tissue Density: The breast tissue is almost entirely fat. Findings: Analyzed By CAD. There is no suspicious group of microcalcifications or new suspicious mass. Overall Assessment: Negative, BI-RAD 1 Management: Screening Mammogram of both breasts in [address] [facility] will attempt to contact patient to return for supplemental views and ultrasound if indicated. Patient should continue monthly self-breast exams. A clinical breast exam by your physician is recommended on an annual basis. This exam should not preclude additional follow-up of suspicious palpable abnormalities. Note on Linda scores and lifetime risk: 1. A Linda score greater than 3% is considered moderate risk. If this is the case, consider specialist referral to assess eligibility for a risk reducing agent. 2. If overall lifetime risk for the development of breast cancer is 20% or higher, the patient may qualify for future screening with alternating mammogram and breast MRI. Electronically signed and approved by: Colton Gracia DO
== END | disposition home or self-care (01) ==
LOC: RADMAMWWP 06:56
PROVIDERS: ATTEND Obstetrics & Gynecology
DX: Z12.31 Encounter for screening mammogram for malignant neoplasm of breast (principal); Z78.0 Asymptomatic menopausal state; Z80.3 Family history of malignant neoplasm of breast
CPT/HCPCS: 77063; 77067

== ENCOUNTER → 2023-05-01 | Outpatient (CLI) | payer BC ==
--- NOTE | 2023-05-01 11:38 | FL ---
EXAMINATION TYPE: FL barium swallow DATE OF EXAM: 05/01/2023 10:32 AM COMPARISON: Chest radiograph from same day. 05/01/2023. CLINICAL INDICATION:Female, 57 years old with history of DYSPHAGIA; [facility], TECHNIQUE: The procedure was explained and patient history elicited. All patient questions were ans wered prior to start of procedure. Multiple spot fluoroscopic images of the esophagus were obtained a fter the oral ingestion of effervescent crystals and liquid barium as the contrast agent. Fluoroscopic time:23 sec Fluoroscopic images:0 Radiographs taken: 58 DAP: 953 mGym2 FINDINGS: The esophagus demonstrates normal primary and secondary peristalsis. The esophageal mucosa is smooth without evidence of focal stricture, ulceration, or abnormal outpouching. No gastroesophageal reflu x disease was identified. Small hiatal hernia is present on prone imaging . IMPRESSION: 1. Normal esophagram. 2. Small hiatal hernia
== END | disposition home or self-care (01) ==
LOC: RADCTMAIN 08:31
PROVIDERS: ATTEND Otolaryngology
DX: K44.9 Diaphragmatic hernia without obstruction or gangrene (principal); J38.01 Paralysis of vocal cords and larynx, unilateral
CPT/HCPCS: 74220; 71270; Q9967

== ENCOUNTER 2023-05-04 10:04 | Observation (INO) | payer BC ==
[2023-05-04 10:57] LABS: Basophils % (A) 0 %; Eosinophils # (A) 0.2 k/uL (0-0.7); Eosinophils % (A) 2 %; HCT 39.7 % (34.0-46.0); HGB 13.4 gm/dL (11.4-16.0); Lymphocytes # (A) 2.2 k/uL (1.0-4.8); Lymphocytes % (A) 23 %; MCH 28.7 pg (25.0-35.0); MCHC 33.7 g/dL (31.0-37.0); MCV 85.2 fL (80.0-100.0); Mean Platelet Volume 8.1; Monocytes # (A) 0.4 k/uL (0-1.0); Monocytes % (A) 5 %; Neutrophils # (A) 6.5 k/uL (1.3-7.7); Neutrophils % (A) 69 %; Platelet Count 292 k/uL (150-450); RBC 4.66 m/uL (3.80-5.40); RDW 12.9 % (11.5-15.5); WBC 9.4 k/uL (3.8-10.6)
[2023-05-04] MEDS: ASPIRIN 81 MG PO STA (11:04)
[2023-05-04] MEDS: NITROGLYCERIN OINT 1 INCH/GM PACKET TOPICAL STA (11:04)
--- NOTE | 2023-05-04 11:14 | ED ---
General Adult HPI - General Chief complaint: Arrhythmia/Palpitations Stated complaint: chest pressure Time Seen by Provider: 05/04/23 11:00 Source: patient, RN notes reviewed, old records reviewed Mode of arrival: ambulatory Limitations: no limitations - History of Present Illness Initial comments: This is a 57-year-old female who presents to the emergency department stating for the last month she has been having episodes of chest pressure that last for few minutes but it seems to be getting progressively worse. Patient states she started lisinopril at the beginning of the month. Patient states that she also was having some shortness of breath and occasional lightheadedness. Patient denies any fever cough. Patient states the feeling in her chest is a pressure sensation. Patient states it seemed worse today when she was at work. Patient states she has high cholesterol and high blood pressure. Patient also states she has a very strong family history of heart disease. - Related Data Home Medications Medication Instructions Recorded Confirmed Cholecalciferol (Vitamin D3) 2,000 unit PO DAILY 01/04/18 12/26/22 [Vitamin D3] Methylphenidate HCl [Ritalin] 10 mg PO QID 01/04/18 12/26/22 Atorvastatin Calcium 40 mg PO HS 12/26/22 12/26/22 Multivit-Min/Iron/FA/Vit K/Lut 1 each PO DAILY 12/26/22 12/26/22 [Centrum Women 50 Plus Minis Tb] Unk Fish Oil 2 tab PO DAILY 12/26/22 12/26/22 Allergies Allergy/AdvReac Type Severity Reaction Status Date / Time acetaminophen Allergy Vomiting Verified 05/04/23 10:20 [From Darvocet-N] bacitracin Allergy Swelling,it Verified 05/04/23 10:20 [From Neosporin adela ([id number])] blue dye Allergy sneezing,it Verified 05/04/23 10:20 adela neomycin Allergy Swelling,it Verified 05/04/23 10:20 [From Neosporin adela ([id number])] polymyxin B Allergy Swelling,it Verified 05/04/23 10:20 [From Neosporin adela ([id number])] propoxyphene Allergy Vomiting Verified 05/04/23 10:20 [From Darvocet-N] Review of Systems ROS Statement: Those systems with pertinent positive or pertinent negative responses have been documented in the HPI. ROS Other: All systems not noted in ROS Statement are negative. Past Medical History Past Medical History: Chest Pain / Angina, GERD/Reflux, Hyperlipidemia Additional Past Medical History / Comment(s): hiatal hernia, hx ulcer, IBS, constipation, abdominal pain after eating, upper abdominal swelling,trouble swallowing. spot on kidney being watched. lump on neck had CT.- normal History of Any Multi-Drug Resistant Organisms: None Reported Past Surgical History: Section, Cholecystectomy, Hysterectomy, Orthopedic Surgery Additional Past Surgical History / Comment(s): rt shoulder rotator cuff, Past Anesthesia/Blood Transfusion Reactions: No Reported Reaction, Motion S ickness Past Psychological History: Anxiety, Depression Smoking Status: Former smoker Past Alcohol Use History: Occasional Past Drug Use History: None Reported - Past Family History Brother(s) Family Medical History: Cancer, Diabetes Mellitus, Deep Vein Thrombosis (DVT), Myocardial Infarction ([place]) Father Family Medical History: Diabetes Mellitus, Myocardial Infarction ([place]) Sister(s) Family Medical History: Diabetes Mellitus General Exam - General Exam Comments Initial Comments: GENERAL: Patient is well-developed and well-nourished. Patient is nontoxic and well- hydrated and is in mild distress. ENT: Neck is soft and supple. No significant lymphadenopathy is noted. Oropharynx is clear. Moist mucous membranes. Neck has full range of motion without eliciting any pain. EYES: The sclera were anicteric and conjunctiva were pink and moist. Extraocular movements were intact and pupils were equal round and reactive to light. Eyelids were unremarkable. PULMONARY: Unlabored respirations. Good breath sounds bilaterally. No audible rales rhonchi or wheezing was noted. CARDIOVASCULAR: There is a regular rate and rhythm without any murmurs gallops or rubs. ABDOMEN: Soft and nontender with normal bowel sounds. SKIN: Skin is clear with no lesions or rashes and otherwise unremarkable. NEUROLOGIC: Patient is alert and oriented x3. Cranial nerves II through XII are grossly intact. Motor and sensory are also intact. Normal speech, volume and content. Symmetrical smile. MUSCULOSKELETAL: Normal extremities with adequate strength and full range of motion. No lower extremity swelling or edema. No calf tenderness. LYMPHATICS: No significant lymphadenopathy is noted PSYCHIATRIC: Normal psychiatric evaluation. Limitations: no limitations Course Vital Signs 05/04/23 05/04/23 05/04/23 10:16 11:00 12:00 Temperature 98 F Pulse Rate 75 75 62 Respiratory 18 16 11 L Rate Blood Pressure 159/81 127/91 165/84 O2 Sat by Pulse 98 96 97 Oximetry Medical Decision Making - Medical Decision Making EKG is interpreted by myself but EKG shows a sinus rhythm at 67 bpm [place] interval is 143 QRS is 98 QT interval 382 QTc is 397. Patient EKG shows no ST segment ovation or depression. Was pt. sent in by a medical professional or institution (, SHAUN, ENERGY PROJECT ENGINEER, urgent care, hospital, or half-way...) When possible be specific @ -No Did you speak to anyone other than the patient for history (EMS, parent, family, police, friend...)? What history was obtained from this source @ -No Did you review nursing and triage notes (agree or disagree)? Why? @ -I reviewed and agree with nursing and triage notes Were old charts reviewed (outside hosp., previous admission, EMS record, old EKG, old radiological studies, urgent care reports/EKG's, half-way records)? Report findings @ -I reviewed prior charts prior lab work and prior radiological studies Differential Diagnosis (chest pain, altered mental status, abdominal pain women, abdominal pain men, vaginal bleeding, weakness, fever, dyspnea, syncope, headache, dizziness, GI bleed, back pain, seizure, CVA, palpatations, mental health, musculoskeletal)? @ -Differential Chest Pain: Stable Angina, Unstable Angina, STEMI, NSTEMI Aortic Dissection, Pneumothorax, Musculoskeletal, Esophageal Spasm GERD, Cholecystitis, Pancreatitis, Zoster, this is not meant to be an all-inclusive list. EKG interpreted by me (3pts min.). @ -As above X-rays interpreted by me (1pt min.). @ -Chest x-ray shows no acute normality CT interpreted by me (1pt min.). @ -None done U/S interpreted by me (1pt. min.). @ -None done What testing was considered but not performed or refused? (CT, X-rays, U/S, labs)? Why? @ -None What meds were considered but not given or refused? Why? @ -None Did you discuss the management of the patient with other professionals (professionals i.e. , SHAUN, ENERGY PROJECT ENGINEER, lab, RT, psych nurse, social worker health services, shooting gallery operator, teacher, aviation ordnance officer, correctional counselor/case manager)? Give summary @ -I spoke with sound physicians and they agreed to admit the patient so I admitted the patient wrote admitting orders Was smoking cessation discussed for >3mins.? @ -No Was critical care preformed (if so, how long)? @ -No Were there social determinants of health that impacted care today? How? (Homelessness, low income, unemployed, alcoholism, drug addiction, transportation, low edu. Level, literacy, decrease access to med. care, detention, rehab)? @ -No Was there de-escalation of care discussed even if they declined (Discuss DNR or withdrawal of care, Hospice)? DNR status @ -No What co-morbidities impacted this encounter? (DM, HTN, Smoking, COPD, CAD, Cancer, CVA, ARF, Chemo, Hep., AIDS, mental health diagnosis, sleep apnea, morbid obesity)? @ -None Was patient admitted / discharged? Hospital course, mention meds given and route, prescriptions, significant lab abnormalities, going to OR and other pertinent info. @ -Patient had a negative chest x-ray negative lab work but was experiencing this chest heaviness throughout the month and getting worse. I spoke with sound physicians they agreed to admit the patient to the patient wrote admitting or psych consult to cardiology Undiagnosed new problem with uncertain prognosis? @ -No Drug Therapy requiring intensive monitoring for toxicity (Heparin, Nitro, Insu leandro, Cardizem)? @ -No Were any procedures done? @ -No Diagnosis/symptom? @ -Chest pain Acute, or Chronic, or Acute on Chronic? @ -Acute Uncomplicated (without systemic symptoms) or Complicated (systemic symptoms)? @ -Complicated Side effects of treatment? @ -No Exacerbation, Progression, or Severe Exacerbation? @ -No Poses a threat to life or bodily function? How? (Chest pain, USA, MS, pneumonia, PE, COPD, DKA, ARF, appy, cholecystitis, CVA, Diverticulitis, Homicidal, Suicidal, threat to staff... and all critical care pts) @ -Yes this could lead to an MS and endorgan dysfunction - Lab Data Result diagrams: 05/04/23 10:41 05/04/23 10:41 Lab Results 05/04/23 05/04/23 05/04/23 Range/Units 10:41 10:41 10:41 WBC 9.4 (3.8-10.6) k/uL RBC 4.66 (3.80-5.40) m/uL Hgb 13.4 (11.4-16.0) gm/dL Hct 39.7 (34.0-46.0) % MCV 85.2 (80.0-100.0) fL MCH 28.7 (25.0-35.0) pg MCHC 33.7 (31.0-37.0) g/dL RDW 12.9 (11.5-15.5) % Plt Count 292 (150-450) k/uL MPV 8.1 Neutrophils % 69 % Lymphocytes % 23 % Monocytes % 5 % Eosinophils % 2 % Basophils % 0 % Neutrophils # 6.5 (1.3-7.7) k/uL Lymphocytes # 2.2 (1.0-4.8) k/uL Monocytes # 0.4 (0-1.0) k/uL Eosinophils # 0.2 (0-0.7) k/uL Basophils # 0.0 (0-0.2) k/uL PT 9.9 L (10.0-12.5) sec INR 0.9 (<1.2) APTT 21.2 L (22.0-30.0) sec Sodium 139 (137-145) mmol/L Potassium 4.6 (3.5-5.1) mmol/L Chloride 105 (98-107) mmol/L Carbon Dioxide 25 (22-30) mmol/L Anion Gap 9 mmol/L BUN 14 (7-17) mg/dL Creatinine 0.61 (0.52-1.04) mg/dL Est GFR (CKD-EPI)AfAm >90 (>60 ml/min/1.73 sqM) Est GFR (CKD-EPI)NonAf >90 (>60 ml/min/1.73 sqM) Glucose 90 (74-99) mg/dL Calcium 9.4 (8.4-10.2) mg/dL Magnesium 2.1 (1.6-2.3) mg/dL Total Bilirubin 0.8 (0.2-1.3) mg/dL AST 34 (14-36) U/L ALT 29 (4-34) U/L Alkaline Phosphatase 57 (38-126) U/L Troponin I (0.000-0.034) ng/mL Total Protein 7.6 (6.3-8.2) g/dL Albumin 4.7 (3.5-5.0) g/dL 05/04/23 Range/Units 10:41 WBC (3.8-10.6) k/uL RBC (3.80-5.40) m/uL Hgb (11.4-16.0) gm/dL Hct (34.0-46.0) % MCV (80.0-100.0) fL MCH (25.0-35.0) pg MCHC (31.0-37.0) g/dL RDW (11.5-15.5) % Plt Count (150-450) k/uL MPV Neutrophils % % Lymphocytes % % Monocytes % % Eosinophils % % Basophils % % Neutrophils # (1.3-7.7) k/uL Lymphocytes # (1.0-4.8) k/uL Monocytes # (0-1.0) k/uL Eosinophils # (0-0.7) k/uL Basophils # (0-0.2) k/uL PT (10.0-12.5) sec INR (<1.2) APTT (22.0-30.0) sec Sodium (137-145) mmol/L Potassium (3.5-5.1) mmol/L Chloride (98-107) mmol/L Carbon Dioxide (22-30) mmol/L Anion Gap mmol/L BUN (7-17) mg/dL Creatinine (0.52-1.04) mg/dL Est GFR (CKD-EPI)AfAm (>60 ml/min/1.73 sqM) Est GFR (CKD-EPI)NonAf (>60 ml/min/1.73 sqM) Glucose (74-99) mg/dL Calcium (8.4-10.2) mg/dL Magnesium (1.6-2.3) mg/dL Total Bilirubin (0.2-1.3) mg/dL AST (14-36) U/L ALT (4-34) U/L Alkaline Phosphatase (38-126) U/L Troponin I <0.012 (0.000-0.034) ng/mL Total Protein (6.3-8.2) g/dL Albumin (3.5-5.0) g/dL Disposition Clinical Impression: Chest pain Disposition: ADMITTED IP TO THIS HOSP Referrals: Salomon Talamantes MD [Primary Care Provider] - 1-2 days Time of Disposition: 13:20
[2023-05-04 11:17] LABS: ALT 29 U/L (4-34); AST 34 U/L (14-36); African American GFR (CKD) >90 (>60 ml/min/1.73 sqM); Albumin 4.7 g/dL (3.5-5.0); Alkaline Phosphatase 57 U/L (38-126); Anion Gap 9 mmol/L; Blood Urea Nitrogen 14 mg/dL (7-17); Calcium 9.4 mg/dL (8.4-10.2); Carbon Dioxide 25 mmol/L (22-30); Chloride 105 mmol/L (98-107); Glucose 90 mg/dL (74-99); Magnesium 2.1 mg/dL (1.6-2.3); Non-African American GFR(CKD) >90 (>60 ml/min/1.73 sqM); Sodium 139 mmol/L (137-145); Total Bilirubin 0.8 mg/dL (0.2-1.3); Total Protein 7.6 g/dL (6.3-8.2)
[2023-05-04 11:26] LABS: Potassium 4.6 mmol/L (3.5-5.1)
[2023-05-04 11:33] LABS: INR 0.9 (<1.2)
--- NOTE | 2023-05-04 11:37 | XR ---
EXAMINATION TYPE: XR chest 2V DATE OF EXAM: 05/04/2023 COMPARISON: 05/03/2020 INDICATION: Dysrhythmia TECHNIQUE: Frontal and lateral views of the chest are obtained. FINDINGS: The heart size is normal. The pulmonary vasculature is normal. The lungs are clear. IMPRESSION: 1. No acute pulmonary process.
[2023-05-04 12:46] LABS: Prothrombin Time 9.9 sec (10.0-12.5)
[2023-05-04 12:47] LABS: Partial Thromboplastin Time 21.2 sec (22.0-30.0)
[2023-05-04] MEDS ORDERED: NITROGLYCERIN SL TABS 0.4 MG TAB SUBLINGUAL PRN (13:21)
--- NOTE | 2023-05-04 14:08 | P.CRDCN ---
History of Present Illness History of present illness: HISTORY OF PRESENT ILLNESS: This is a 57-year-old female with a past medical history significant for hypertension and hyperlipidemia. Patient follows in the office with Dr. Light. We have been asked to see the patient in consultation for chest pain. Patient examined at the bedside in the emergency room. Patient presented to the hospital with a chief complaint of chest discomfort. Patient states over the past 2 months she has been having intermittent episodes of chest tightness/pre ssure. She states that these episodes are not always exertionally related however the majority of them seem to be exertionally related. She reports that her face seems to get really flushed when these episodes occur. She denies any nausea or vomiting. Denied any radiation of the pain. She does report having some blurred vision this morning. 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 She was given sublingual nitro and started on a nitro patch which relieved her chest pressure. She states she has not had any further episodes of chest pressure or tightness since that time. She also reports having some lower extremity edema. She states that she previously used to be on water pills as needed however her PCP discontinued this a while ago. She does report that her PCP started her on lisinopril within the past month as her blood pressures have been running high every time she is seen in the office. She currently denies any shortness of breath. She is a non-smoker. She denies any history of diabetes. She denies drug use including marijuana. She does report a family history of CAD in her father. DIAGNOSTICS: - EKG reveals sinus mechanism with no signs of acute ischemia. - Chest xray negative for acute process. - Laboratory data: WBC 9.4. Hemoglobin 13.4. Platelet count 292. Sodium 139. Potassium 4.6. BUN 14. Creatinine 0.61. Magnesium 2.1. Troponin negative x 1 - Current home cardiac medication list is not updated at the time of this dictation - Most recent echocardiogram obtained in December 2021 revealed ejection fraction 55%, trace MR, mild TR - Patient underwent stress testing in November 2021 which was negative for stress-induced ischemia REVIEW OF SYSTEMS: At the time of my exam: CONSTITUTIONAL: Denies fever or chills. HEENT: Denies blurred vision, vision changes, or eye pain. Denies hemoptysis CARDIOVASCULAR: Denies chest pain. Denies orthopnea. Denies PND. Denies palpitations RESPIRATORY: Denies shortness of breath. GASTROINTESTINAL: Denies abdominal pain. Denies nausea or vomiting. HEMATOLOGIC: Denies bleeding disorders. GENITOURINARY: Denies any blood in urine. SKIN: Denies pruitis. Denies rash. PHYSICAL EXAM: VITAL SIGNS: Reviewed. GENERAL: Well-developed in no acute distress. HEENT: Head is normocephalic. Pupils are equal, round. Sclerae anicteric. Mucous membranes of the mouth are moist. Neck supple. No JVD or thyromegaly LUNGS: Respirations even and unlabored. Lungs essentially clear to auscultation bilaterally. HEART: Regular rate and rhythm. S1 and S2 heard. ABDOMEN: Soft. Nondistended. Nontender. EXTREMITIES: Normal range of motion. No clubbing or cyanosis. Peripheral pulses intact. No lower extremity edema NEUROLOGIC: Awake and alert. Oriented x 3. ASSESSMENT: Chest pain Hypertension Hyperlipidemia Family history of CAD Morbid obesity: BMI 32.0 ADD/ADHD PLAN: Trend troponins Obtain 2D echo to assess cardiac structure and function Resume home cardiac medications once medication list has been verified N.p.o. at midnight If patient's troponins remain negative, patient will undergo stress echocardiogram tomorrow Further recommendations pending patient course Nurse practitioner note has been reviewed by physician. Signing provider agrees with the documented findings, assessment, and plan of care documented by CAT CRACKER OPERATOR as a scribe. Past Medical History Past Medical History: Chest Pain / Angina, GERD/Reflux, Hyperlipidemia Additional Past Medical History / Comment(s): hiatal hernia, hx ulcer, IBS, constipation, abdominal pain after eating, upper abdominal swelling,trouble swallowing. spot on kidney being watched. lump on neck had CT.- normal History of Any Multi-Drug Resistant Organisms: None Reported Past Surgical History: Section, Cholecystectomy, Hysterectomy, Orthopedic Surgery Additional Past Surgical History / Comment(s): rt shoulder rotator cuff, Past Anesthesia/Blood Transfusion Reactions: No Reported Reaction, Motion Sickness Past Psychological History: Anxiety, Depression Smoking Status: Former smoker Past Alcohol Use History: Occasional Past Drug Use History: None Reported - Past Family History Brother(s) Family Medical History: Cancer, Diabetes Mellitus, Deep Vein Thrombosis (DVT), Myocardial Infarction ([place]) Father Family Medical History: Diabetes Mellitus, Myocardial Infarction ([place]) Sister(s) Family Medical History: Diabetes Mellitus Medications and Allergies Home Medications Medication Instructions Recorded Confirmed Type Cholecalciferol (Vitamin D3) 2,000 unit PO DAILY 01/04/18 12/26/22 History [Vitamin D3] Methylphenidate HCl [Ritalin] 10 mg PO QID 01/04/18 12/26/22 History Atorvastatin Calcium 40 mg PO HS 12/26/22 12/26/22 History Multivit-Min/Iron/FA/Vit K/Lut 1 each PO DAILY 12/26/22 12/26/22 History [Centrum Women 50 Plus Minis Tb] Unk Fish Oil 2 tab PO DAILY 12/26/22 12/26/22 History Allergies Allergy/AdvReac Type Severity Reaction Status Date / Time acetaminophen Allergy Vomiting Verified 05/04/23 10:20 [From Darvocet-N] bacitracin Allergy Swelling,it Verified 05/04/23 10:20 [From Neosporin adela ([id number])] blue dye Allergy sneezing,it Verified 05/04/23 10:20 adela neomycin Allergy Swelling,it Verified 05/04/23 10:20 [From Neosporin adela ([id number])] polymyxin B Allergy Swelling,it Verified 05/04/23 10:20 [From Neosporin adela ([id number])] propoxyphene Allergy Vomiting Verified 05/04/23 10:20 [From Darvocet-N] Physical Exam Vitals: Vital Signs Temp Pulse Resp BP Pulse Ox 05/04/23 12:00 62 11 L 165/84 97 05/04/23 11:00 75 16 127/91 96 05/04/23 10:16 98 F 75 18 159/81 98 Intake and Output 05/03/23 05/04/23 05/04/23 22:59 06:59 14:59 Other: Weight 87.09 kg Results 05/04/23 10:41 05/04/23 10:41 Cardiac Enzymes 05/04/23 05/04/23 Range/Units 10:41 10:41 AST 34 (14-36) U/L Troponin I <0.012 (0.000-0.034) ng/mL Coagulation 05/04/23 Range/Units 10:41 PT 9.9 L (10.0-12.5) sec APTT 21.2 L (22.0-30.0) sec CBC 05/04/23 Range/Units 10:41 WBC 9.4 (3.8-10.6) k/uL RBC 4.66 (3.80-5.40) m/uL Hgb 13.4 (11.4-16.0) gm/dL Hct 39.7 (34.0-46.0) % Plt Count 292 (150-450) k/uL Comprehensive Metabolic Panel 05/04/23 Range/Units 10:41 Sodium 139 (137-145) mmol/L Potassium 4.6 (3.5-5.1) mmol/L Chloride 105 (98-107) mmol/L Carbon Dioxide 25 (22-30) mmol/L BUN 14 (7-17) mg/dL Creatinine 0.61 (0.52-1.04) mg/dL Glucose 90 (74-99) mg/dL Calcium 9.4 (8.4-10.2) mg/dL AST 34 (14-36) U/L ALT 29 (4-34) U/L Alkaline Phosphatase 57 (38-126) U/L Total Protein 7.6 (6.3-8.2) g/dL Albumin 4.7 (3.5-5.0) g/dL Current Medications Generic Name Dose Route Start Last Admin Trade Name Freq PRN Reason Stop Dose Admin Aspirin 325 mg 05/05/23 09:00 Aspirin 325 Mg Tab PO DAILY BELLO Nitroglycerin 0.4 mg 05/04/23 13:21 Nitroglycerin Sl Tabs 0.4 Mg Tab SUBLINGUAL Q5M PRN Chest Pain Nitroglycerin 1 inch 05/04/23 18:00 Nitroglycerin Oint 1 Inch/Gm Packet TOPICAL Q6HR BELLO Intake and Output 05/03/23 05/04/23 05/04/23 22:59 06:59 14:59 Other: Weight 87.09 kg Patient Weight 05/05/23 06:59 Weight 87.09 kg 05/04/23 10:41 05/04/23 10:41
--- NOTE | 2023-05-04 15:48 | P.HPIM ---
History of Present Illness H&P Date: 05/04/23 History of Presenting Illness: Patient is a pleasant 57-year-old female with a past medical history of IBS with constipation, GERD, gastric ulcer, hypertension and hyperlipidemia. She presented to the emergency department with a chief complaint of chest pain.. Patient reports she has been experiencing a squeezing-like pressure sensation to her midsternal chest intermittently over the last 2 months but progressively worsening over the past 3 days. She denies anything making this pain better but does state that it becomes slightly worse with exertion. She denies any radi ation of pain. She reports it is not a pain more of a pressure like she is being squeezed tightly. She reports when this occurs she becomes a little dizzy/lightheaded and her face becomes extremely flushed. She denies diaphoresis, headache, changes in vision or hearing, palpitations, or experienc ing any shortness of breath or cough. She reports that she has been experiencing lower extremity edema off and on over the past few months and states she was started on lisinopril 10 mg daily nearly a month ago and since has had improvement in her lower extremity edema. She underwent evaluation in the emergency department. Vital signs upon arrival show blood pressure 159/81, heart rate 75, respiratory rate 18, temp 98.0 F, and SpO2 of 98% on room air. EKG was completed showing normal sinus rhythm at 67 bpm with no noted T wave or ST abnormalities showing no signs of acute ischemia upon personal review and interpretation. Chest x-ray negative for acute cardiopulmonary process. Labs completed and reviewed. CBC unremarkable. Coagulation profile showing low PT of 9.9 and low PTT of 21.2. BMP was unremarkable. Liver profile normal findings. Magnesium 2.1. Troponin less than 0.012. Patient admitted under services with consultation to cardiology. Review of systems: Pertinent positives and negatives as discussed in HPI, a complete review of systems was performed and all other systems are negative. Physical exam: Vital signs reviewed and stable. General: Nontoxic, no distress and appears stated age. Derm: Skin warm and dry, normal coloration for ethnicity. Head: Atraumatic, normocephalic and symmetric. Eyes: EOMs intact, no lid lag, and anicteric sclera Mouth: no lip lesions, mucus membranes moist Cardiovascular: regular rate and rhythm with normal S1S2, no murmur, positive posterior tibial pulses bilaterally, and cap refill < 2 seconds. Lungs: Respirations even, regular, and unlabored on room air. Lungs CTA bilaterally, no rhonchi, no rales, no wheezing, and no accessory muscle usage. Abdominal: soft, nontender to palpation, no guarding, no appreciable organomegaly Ext: ROM intact. No gross muscle atrophy, no edema, no contractures Neuro: Speech clear, face symmetrical and CN II-XII grossly intact with no noted focal neuro deficits Psych: Alert and oriented to person, place, time, and situation. Appropriate and pleasant affect. Assessment and Plan of Care: Chest pain, rule out acute coronary event Hypertension Hyperlipidemia -Cardiology consulted, appreciate recommendations -Telemetry monitoring -Trend troponins -Cardiac diet, NPO at midnight -Continue daily medication regimen with lisinopril 10 mg daily, aspirin 81 mg daily and atorvastatin 40 mg nightly. -Lipid profile and hemoglobin A1c with a.m. labs. -Echocardiogram GERD History of gastric ulcer -GI prophylaxis with Protonix 40 mg daily. IBS with constipation -Patient started on MiraLAX 17 g daily. Data and imaging reviewed: -As stated above in HPI The patient is admitted with an anticipated less than 2 midnight stay for evaluation of chest pain CODE STATUS: Full code DVT prophylaxis: Heparin Anticipated discharge date: 24 to [address]: Home Patient was seen independently by Nurse Practitioner. This document was prepared using [employer] dictation software. Please allow for errors in baker while rare they do occur. Kedar Hernandez NP rendered care for this patient independently, reviewed the findings and plan as documented in the note above. I did not physically speak with or examine the patient on this date. Past Medical History Past Medical History: Chest Pain / Angina, GERD/Reflux, Hyperlipidemia Additional Past Medical History / Comment(s): hiatal hernia, hx ulcer, IBS, constipation, abdominal pain after eating, upper abdominal swelling,trouble swallowing. spot on kidney being watched. lump on neck had CT.- normal History of Any Multi-Drug Resistant Organisms: None Reported Past Surgical History: Section, Cholecystectomy, Hysterectomy, Orthopedic Surgery Additional Past Surgical History / Comment(s): rt shoulder rotator cuff, Past Anesthesia/Blood Transfusion Reactions: No Reported Reaction, Motion Sic kness Past Psychological History: Anxiety, Depression Smoking Status: Former smoker Past Alcohol Use History: Occasional Past Drug Use History: None Reported - Past Family History Brother(s) Family Medical History: Cancer, Diabetes Mellitus, Deep Vein Thrombosis (DVT), Myocardial Infarction (PA) Father Family Medical History: Diabetes Mellitus, Myocardial Infarction (PA) Sister(s) Family Medical History: Diabetes Mellitus Medications and Allergies Home Medications Medication Instructions Recorded Confirmed Type Methylphenidate HCl [Ritalin] 10 mg PO QID 01/04/18 05/04/23 History Atorvastatin Calcium 40 mg PO HS 12/26/22 05/04/23 History Multivitamins, Thera [Multivitamin 1 tab PO HS 05/04/23 05/04/23 History (formulary)] Vitsmin D3/K2 1 tab PO HS 05/04/23 05/04/23 History lisinopriL [Zestril] 10 mg PO DAILY@0900 05/04/23 05/04/23 History Fenofibrate Nanocrystallized 145 mg PO DAILY 90 Days #90 tablet 05/05/23 Rx [Fenofibrate] Allergies Allergy/AdvReac Type Severity Reaction Status Date / Time bacitracin Allergy Swelling,it Verified 05/04/23 15:59 [From Neosporin adela ([id number])] blue dye Allergy sneezing,it Verified 05/04/23 15:59 adela neomycin Allergy Swelling,it Verified 05/04/23 15:59 [From Neosporin adela ([id number])] polymyxin B Allergy Swelling,it Verified 05/04/23 15:59 [From Neosporin adela ([id number])] propoxyphene Allergy Vomiting Verified 05/04/23 15:59 [From Darvocet-N] levofloxacin [From Levaquin] AdvReac Vomiting, Verified 05/04/23 15:59 Headache Physical Exam Vitals: Vital Signs Temp Pulse Resp BP Pulse Ox 05/04/23 12:00 62 11 L 165/84 97 05/04/23 11:00 75 16 127/91 96 05/04/23 10:16 98 F 75 18 159/81 98 Intake and Output 05/03/23 05/04/23 05/04/23 22:59 06:59 14:59 Other: Weight 87.09 kg Results CBC & Chem 7: 05/04/23 10:41 05/04/23 10:41 Labs: Abnormal Lab Results - Last 24 Hours (Table) 05/04/23 Range/Units 10:41 PT 9.9 L (10.0-12.5) sec APTT 21.2 L (22.0-30.0) sec
[2023-05-04] MEDS: HEPARIN SODIUM,PORCINE 5,000 UNIT/ML 1 ML VIAL SQ SCH (16:19)
[2023-05-04] MEDS: NITROGLYCERIN OINT 1 INCH/GM PACKET TOPICAL SCH (19:05)
[2023-05-04] MEDS: ATORVASTATIN 40 MG TAB PO SCH (20:52)
[2023-05-05] MEDS: ACETAMINOPHEN TAB 325 MG TAB PO STA (02:51)
[2023-05-05] MEDS: ASPIRIN 81 MG PO SCH (08:10)
[2023-05-05] MEDS: PANTOPRAZOLE 40 MG TABLET PO SCH (08:10)
[2023-05-05] MEDS: lisinopriL 10 MG TAB PO SCH (08:10)
[2023-05-05] MEDS: polyethylene glycoL 3350 17 GM POWD.PACK PO SCH (08:10)
[2023-05-05 08:44] VITALS: TEMP 98.1
[2023-05-05] MEDS ORDERED: ASPIRIN 325 MG TAB PO SCH (09:00)
--- NOTE | 2023-05-05 09:19 | CA ---
Transthoracic Echo Report Name: Leann Winter Age: 57 Gender: F : 1965 Exam Date: 05/04/2023 16:28 Exam Location: [facility] Ht (in): 65 Wt (lb): 192 Ordering Physician: Genet Wilkes Attending/Referring Phys: [id number], Katrin Production Ski Repairer José Miguel Alicea RDCS Procedure CPT: Indications: LV function, CP Cardiac Hx: Technical Quality: Technically difficult study Contrast 1: Total Dose (mL): Contrast 2: Total Dose (mL): MEASUREMENTS (Male / Female) Normal Values 2D ECHO LV Diastolic Diameter PLAX 3.2 cm 4.2 - 5.9 / 3.9 - 5.3 cm LV Systolic Diameter PLAX 2.1 cm IVS Diastolic Thickness 1.3 cm 0.6 - 1.0 / 0.6 - 0.9 cm LVPW Diastolic Thickness 1.4 cm 0.6 - 1.0 / 0.6 - 0.9 cm LV Relative Wall Thickness 0.9 LVOT Diameter 2.4 cm Aortic Root Diameter 3.4 cm LA Systolic Diameter LX 3.2 cm 3.0 - 4.0 / 2.7 - 3.8 cm DOPPLER AV Peak Velocity 149.5 cm/s AV Peak Gradient 8.9 mmHg AV Mean Velocity 95.9 cm/s AV Mean Gradient 4.3 mmHg AV Velocity Time Integral 29.2 cm LVOT Peak Velocity 109.0 cm/s LVOT Peak Gradient 4.7 mmHg LVOT Velocity Time Integral 24.7 cm LVOT Stroke Volume 111.6 cm??? LVOT Stroke Volume Index 57.4 ml/m??? LVOT Cardiac Index 4180.4 cm???/min???m??? AV Area Cont Eq vti 3.8 cm??? AV Area Cont Eq pk 3.3 cm??? Mitral E Point Velocity 87.2 cm/s Mitral A Point Velocity 99.8 cm/s Mitral E to A Ratio 0.9 MV Deceleration Time 297.0 ms PV Peak Velocity 94.3 cm/s PV Peak Gradient 3.6 mmHg FINDINGS Left Ventricle Left ventricular ejection fraction is estimated at 55-60 %. Normal Left ventricular size, wall thickness, systolic function. Right Ventricle Normal right ventricular size. Unable to estimate the right ventricular systolic pressure. Right Atrium Normal right atrial size. Left Atrium Normal left atrial size. Mitral Valve No mitral regurgitation.structurally normal mitral valve. Aortic Valve No aortic valve stenosis or regurgitation.aortic valve not well visualized. Tricuspid Valve No tricuspid regurgitation.structurally normal tricuspid valve. Pulmonic Valve Pulmonic valve not well visualized. Pericardium No pericardial effusion. Aorta Normal size aortic root. CONCLUSIONS Technically difficult study. Normal left ventricle size and systolic function Very limited Doppler study with no gross abnormalities. Previewed by: Dr. Rell Barroso MD (Electronically Signed) Final Date: 05 May 2023 09:18
[2023-05-05 09:23] VITALS: BP 134/76; PULSE 63
[2023-05-05 10:00] VITALS: RESP 16
--- NOTE | 2023-05-05 10:15 | P.PN ---
Subjective HISTORY OF PRESENT ILLNESS: This is a 57-year-old female with a past medical history significant for hypertension and hyperlipidemia. Patient follows in the office with Dr. Light. We have been asked to see the patient in consultation for chest pain. Patient examined at the bedside in the emergency room. Patient presented to the hospital with a chief complaint of chest discomfort. Patient states over the past 2 months she has been having intermittent episodes of chest tightness/pressure. She states that these episodes are not always exertionally related however the majority of them seem to be exertionally related. She reports that her face seems to get really flushed when these episodes occur. She denies any nausea or vomiting. Denied any radiation of the pain. She does report having some blurred vision this morning. 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 She was given sublingual nitro and started on a nitro patch which relieved her chest pressure. She states she has not had any further episodes of chest pressure or tightness since that time. She also reports having some lower extremity edema. She states that she previously used to be on water pills as needed however her PCP discontinued this a while ago. She does report that her PCP started her on lisinopril within the past month as her blood pressures have been running high every time she is seen in the office. She currently denies any shortness of breath. She is a non-smoker. She denies any history of diabetes. She denies drug use including marijuana. She does report a family history of CAD in her father. DIAGNOSTICS: - EKG reveals sinus mechanism with no signs of acute ischemia. - Chest xray negative for acute process. - Laboratory data: WBC 9.4. Hemoglobin 13.4. Platelet count 292. Sodium 139. Potassium 4.6. BUN 14. Creatinine 0.61. Magnesium 2.1. Troponin negative x 1 - Current home cardiac medication list is not updated at the time of this dictation - Most recent echocardiogram obtained in December 2021 revealed ejection fraction 55%, trace MR, mild TR - Patient underwent stress testing in November 2021 which was negative for stress-induced ischemia 05/05/2023 Patient examined this morning at the bedside. Patient denies chest pain or pressure. She denies any shortness of breath. Troponins are negative x 3. Echocardiogram completed revealing ejection fraction 55 to 60%. PHYSICAL EXAM: VITAL SIGNS: Reviewed. GENERAL: Well-developed in no acute distress. HEENT: Head is normocephalic. Pupils are equal, round. Sclerae anicteric. Mucous membranes of the mouth are moist. Neck supple. No JVD or thyromegaly LUNGS: Respirations even and unlabored. Lungs essentially clear to auscultation bilaterally. HEART: Regular rate and rhythm. S1 and S2 heard. ABDOMEN: Soft. Nondistended. Nontender. EXTREMITIES: Normal range of motion. No clubbing or cyanosis. Peripheral pulses intact. No lower extremity edema NEUROLOGIC: Awake and alert. Oriented x 3. ASSESSMENT: Chest pain, troponin negative x 3 Hypertension Hyperlipidemia Family history of CAD Morbid obesity: BMI 32.0 ADD/ADHD PLAN: An acute coronary event has been ruled out Continue current cardiac medications Patient to undergo stress echocardiogram today. If negative, she may be discharged home from a cardiac standpoint Patient to follow-up postdischarge with Dr. Light Further recommendations pending patient course Nurse practitioner note has been reviewed by physician. Signing provider agrees with the documented findings, assessment, and plan of care documented by CAR BUILDER as a scribe. Objective - Vital Signs Vital signs: Vital Signs Temp 98.1 F 05/05/23 08:07 Pulse 63 05/05/23 09:00 Resp 16 05/05/23 09:00 BP 121/66 05/05/23 08:07 Pulse Ox 96 05/05/23 08:07 FiO2 Intake & Output 05/04/23 05/05/23 05/05/23 18:59 06:59 18:59 Weight 87.09 kg 87.09 kg - Labs CBC & Chem 7: 05/04/23 10:41 05/04/23 10:41 Labs: Abnormal Lab Results - Last 24 Hours (Table) 05/04/23 05/04/23 Range/Units 10:41 14:09 PT 9.9 L (10.0-12.5) sec APTT 21.2 L (22.0-30.0) sec Hemoglobin A1c 6.1 H (<=6.0) %
[2023-05-05 11:39] LABS: LDL Cholesterol,Calculated 103.1 mg/dL (0.0-131.0)
--- NOTE | 2023-05-05 13:47 | CA ---
Stress Echo Report Leann Winter Age: 57 Gender: F : 1965 Exam Date: 05/05/2023 10:16 Exam Location: [facility] Ht (in): 65 Wt (lb): 192 Ordering Physician: Genet Wilkes Referring Physician: [id number] Medical Record Technician: Jazmine Rowland RDCS Technologist Procedure CPT: Indication: CP ICD-9 Codes: Rhythm: Patient History: CHEST PAIN, PALPITATIONS, HTN, ELEVATED CHOLESTEROL LEVELS, FAMILY HX OF HEART DISEASE, PRIOR SMOKER Cardiac Medications: Medications in past 24 hours: Contrast: Stress Results Protocol: Alex Total dose(mL): Exercise Duration (min:sec): 8:[address] Depression (mm): Angina Score: Whittaker Score: METS: 9.5 Resting HR: 80 Resting BP: 119 / 58 Peak HR: 153 Peak BP: 189 / 56 Max Predicted HR: 161 95 % Max Predicted HR Target HR: 137 Double Product: [id number] Stress Summary: The patient's target heart rate was achieved BP Response: Normal Reason for Termination: MAX EXERTION/TARGET HR Cardiac Symptoms: NO SYMPTOMS ECG Analysis Resting ECG: Normal sinus rhythm, normal ECG Stress ECG: No abnormal ST/T wave changes with exercise Arrhythmia: None Echo Analysis Resting Echo: Normal resting echocardiogram. Peak Echo Analysis: Normal treadmill stress echocardiogram. MEASUREMENTS (Male/Female) Normal Values CONCLUSIONS 1. Good exercise tolerance with normal electrocardiographic response to exercise 2. Normal stress echocardiogram with no evidence of stress induced ischemia Dr. Rell Barroso MD (Electronically Signed) Final Date: 05 May 2023 13:46
--- NOTE | 2023-05-05 14:02 | P.DS ---
Providers Date of admission: 05/04/23 13:22 Expected date of discharge: 05/05/23 Attending physician: Emerson Cho MD Consults: 05/04/23 13:21 Consult Physician Urgent Consulting Provider: [facility] Consult Reason/Comments: Chest pain Do you want consulting provider notified?: Yes Primary care physician: Salomon Talamantes Hospital Course: Discharge Diagnosis: Chest pain, acute coronary event ruled out. Hypertension Hyperlipidemia with hypertriglyceridemia. GERD History of gastric ulcer IBS with constipation Hospital Course: Patient is a pleasant 57-year-old female with a past medical history of IBS with constipation, GERD, gastric ulcer, hypertension and hyperlipidemia. She presented to the emergency department with a chief complaint of chest pain.. Patient reports she has been experiencing a squeezing-like pressure sensation to her midsternal chest intermittently over the last 2 months but progressively worsening over the past 3 days. She denies anything making this pain better but does state that it becomes slightly worse with exertion. She denies any radiation of pain. She reports it is not a pain more of a pressure like she is being squeezed tightly. She reports when this occurs she becomes a little dizzy/lightheaded and her face becomes extremely flushed. She denies diaphoresis, headache, changes in vision or hearing, palpitations, or experiencing any shortness of breath or cough. She reports that she has been experiencing lower extremity edema off and on over the past few months and states she was started on lisinopril 10 mg daily nearly a month ago and since has had improvement in her lower extremity edema. She underwent evaluation in the emergency department. Vital signs upon arrival show blood pressure 159/81, heart rate 75, respiratory rate 18, temp 98.0 F, and SpO2 of 98% on room air. EKG was completed showing normal sinus rhythm at 67 bpm with no noted T wave or ST abnormalities showing no signs of acute ischemia upon personal review and interpretation. Chest x-ray negative for acute cardiopulmonary process. Labs completed and reviewed. CBC unremarkable. Coagulation profile showing low PT of 9.9 and low PTT of 21.2. BMP was unremarkable. Liver profile normal findings. Magnesium 2.1. Troponin less than 0.012. Patient admitted under services with consultation to cardiology. Troponins trended overnight all negative at less than 0.012 x 3 draws. Echocardiogram was completed showing a preserved EF of 55 to 60% with no significant valvular or structural abnormalities reported. Stress echo completed showing good exercise tolerance with normal EKG response to exercise and normal stress echocardiogram with no evidence of stress-induced ischemia. Patient cleared from cardiac perspective for discharge. Lipid profile showing elevated total cholesterol of 224 and elevated triglycerides of 350. Patient started on fenofibrate in addition to her atorvastatin. Hemoglobin A1c was slightly elevated at 6.1% at this time recommend dietary and lifestyle changes and following a heart healthy and carb consistent diet. Patient medically cleared for discharge at this time. Patient to follow-up outpatient with PCP in 1 to 2 days and with insurance operations rep in 1 week Physical exam: Vital signs reviewed and stable. General: Nontoxic, no distress and appears stated age. Derm: Skin warm and dry, normal coloration for ethnicity. Head: Atraumatic, normocephalic and symmetric. Eyes: EOMs intact, no lid lag, and anicteric sclera Mouth: no lip lesions, mucus membranes moist Cardiovascular: regular rate and rhythm with normal S1S2, no murmur, positive posterior tibial pulses bilaterally, and cap refill < 2 seconds. Lungs: Respirations even, regular, and unlabored on room air. Lungs CTA bilaterally, no rhonchi, no rales, no wheezing, and no accessory muscle usage. Abdominal: soft, nontender to palpation, no guarding, no appreciable organomegaly Ext: ROM intact. No gross muscle atrophy, no edema, no contractures Neuro: Speech clear, face symmetrical and CN II-XII grossly intact with no noted focal neuro deficits Psych: Alert and oriented to person, place, time, and situation. Appropriate and pleasant affect. A total of 33 minutes of time were spent preparing this complex discharge summary. Pt was discharged on 05/05/2023 at 2 PM. Patient was seen independently by Nurse Practitioner. This document was prepared using [employer] dictation software. Please allow for errors in environmental specialist while rare they do occur. Kedar Hernandez NP rendered care for this patient independently, reviewed the findings and plan as documented in the note above. I did not physically speak with or examine the patient on this date. Patient Condition at Discharge: Stable Plan - Discharge Summary New Discharge Prescriptions: New Fenofibrate Nanocrystallized [Fenofibrate] 145 mg PO DAILY 90 Days #90 tablet Continue Methylphenidate HCl [Ritalin] 10 mg PO QID Atorvastatin Calcium 40 mg PO HS Vitsmin D3/K2 1 tab PO HS lisinopriL [Zestril] 10 mg PO DAILY@0900 Multivitamins, Thera [Multivitamin (formulary)] 1 tab PO HS Discharge Medication List Methylphenidate HCl [Ritalin] 10 mg PO QID 01/04/18 [History] Atorvastatin Calcium 40 mg PO HS 12/26/22 [History] Multivitamins, Thera [Multivitamin (formulary)] 1 tab PO HS 05/04/23 [History] Vitsmin D3/K2 1 tab PO HS 05/04/23 [History] lisinopriL [Zestril] 10 mg PO DAILY@0900 05/04/23 [History] Fenofibrate Nanocrystallized [Fenofibrate] 145 mg PO DAILY 90 Days #90 tablet 05/05/23 [Rx] Follow up Appointment(s)/Referral(s): Rell Barroso MD [STAFF PHYSICIAN] - 1 Week Salomon Talamantes MD [Primary Care Provider] - 1-2 days Patient Instructions/Handouts: Chest Pain (DC) Activity/Diet/Wound Care/Special Instructions: Activity: As tolerated. Take breaks as needed. Diet: Heart healthy and carb consistent diet. Avoid salts, or foods with hidden salts such as canned or boxed foods and frozen dinners. Extra salt makes your heart work harder and traps the fluid in your body for longer. Special Instructions: Take all of your medications as directed and remember to keep all of your doctor's appointments and follow-up as needed. Thank you for allowing us to participate in your care, it was truly a pleasure having you for our patient!!! Discharge Disposition: HOME SELF-CARE
== END 2023-05-05 15:15 | disposition home or self-care (01) ==
LOC: EC 10:04 → 6NMEDSUR 13:22
PROVIDERS: ADMIT Student in an Organized Health Care Education/Training Program; ATTEND Student in an Organized Health Care Education/Training Program
DX: R07.89 Other chest pain (principal); I10 Essential (primary) hypertension; E78.00 Pure hypercholesterolemia, unspecified; E78.1 Pure hyperglyceridemia; H53.8 Other visual disturbances; F90.9 Attention-deficit hyperactivity disorder, unspecified type; K58.1 Irritable bowel syndrome with constipation; K21.9 Gastro-esophageal reflux disease without esophagitis; E66.01 Morbid (severe) obesity due to excess calories; R42 Dizziness and giddiness; R60.0 Localized edema; R23.2 Flushing; Z68.32 Body mass index [BMI] 32.0-32.9, adult; Z79.899 Other long term (current) drug therapy; Z88.1 Allergy status to other antibiotic agents; Z88.5 Allergy status to narcotic agent; Z88.6 Allergy status to analgesic agent; Z91.048 Other nonmedicinal substance allergy status; Z87.891 Personal history of nicotine dependence; Z87.11 Personal history of peptic ulcer disease; Z82.49 Family history of ischemic heart disease and other diseases of the circulatory system
CPT/HCPCS: 96372 ×2; 99285; 36415; 93005; 93306; 93351; 80061; 80053; 83735; 84484; 85025; 85610; 85730; 83036; 71046; G0378 ×2; J1644 ×2